=== PATIENT | female | born 1960 | race Caucasian/White ===

== ENCOUNTER 2018-12-17 21:46 | Emergency (ER) | payer BC ==
--- NOTE | 2018-12-17 22:09 | ED ---
Fall HPI - General Chief Complaint: Fall Stated Complaint: Fall, back pain Time Seen by Provider: 12/17/18 22:07 Source: patient Mode of arrival: ambulatory - History of Present Illness Initial Comments: Ayana is a pleasant 58-year-old female who presents to the emergency department today for evaluation of left sided rib and shoulder pain after a fall off of a hay wagon. Patient reports that she was on the back of a hay wagon when she fell backwards onto her back left side. She did not hit her head she did not lose consciousness she immediately felt pain in her left shoulder, collarbone and ribs. He did not take any medication for the pain she immediately came to the emergency department for evaluation. Patient denies any chest pain or shortness of breath. She does report pain in her left ribs with deep breathing. Patient is not on any anticoagulant or antiplatelet medications. - Related Data Home Medications Medication Instructions Recorded Confirmed No Known Home Medications 12/17/18 12/17/18 Allergies Allergy/AdvReac Type Severity Reaction Status Date / Time No Known Allergies Allergy Verified 12/17/18 22:01 Review of Systems ROS Statement: Those systems with pertinent positive or pertinent negative responses have been documented in the HPI. ROS Other: All systems not noted in ROS Statement are negative. Past Medical History Past Medical History: No Reported History Additional Past Medical History / Comment(s): FX RT WRIST-04/19/16 History of Any Multi-Drug Resistant Organisms: None Reported Past Surgical History: Section Past Anesthesia/Blood Transfusion Reactions: No Reported Reaction Past Psychological History: No Psychological Hx Reported Smoking Status: Never smoker Past Alcohol Use History: None Reported Past Drug Use History: None Reported - Past Family History Mother Family Medical History: Diabetes Mellitus Father Family Medical History: Cancer General Exam - General Exam Comments Initial Comments: GENERAL: Patient is well-developed and well-nourished. Appears uncomfortable C-collar applied in triage HENT: Normocephalic, Atraumatic. C-collar in place, no tenderness to palpation Poor dentition, no acute dental injuries EYES: The sclera were anicteric and conjunctiva were pink and moist. Extraocular movements were intact and pupils were equal round and reactive to light. Eyelids were unremarkable. PULMONARY: Unlabored respirations. Decreased breath sounds on left secondary to splinting respirations Chest wall tenderness CARDIOVASCULAR: There is a regular rate and rhythm without any murmurs gallops or rubs. ABDOMEN: Soft and nontender with normal bowel sounds. SKIN: Skin is clear with no lesions or rashes and otherwise unremarkable. NEUROLOGIC: Patient is alert and oriented x3. Cranial nerves II through XII are grossly intact. Motor and sensory are also intact. Normal speech, volume and content. Symmetrical smile. MUSCULOSKELETAL: Obvious deformity of left clavicle PSYCHIATRIC: Normal psychiatric evaluation Limitations: no limitations Course Vital Signs 12/17/18 12/17/18 12/17/18 21:49 22:47 22:50 Temperature 98.0 F Pulse Rate 74 Respiratory 18 Rate Blood Pressure 124/77 O2 Sat by Pulse 100 100 100 Oximetry 12/17/18 12/17/18 12/18/18 23:40 23:50 00:20 Temperature Pulse Rate Respiratory 19 Rate Blood Pressure 117/75 133/79 O2 Sat by Pulse 99 99 100 Oximetry 12/18/18 12/18/18 12/18/18 00:30 00:40 00:50 Temperature 98.6 F Pulse Rate 95 Respiratory 19 20 Rate Blood Pressure 120/74 135/71 116/65 O2 Sat by Pulse 100 100 100 Oximetry Medical Decision Making - Medical Decision Making The patient was seen and evaluated Patient had a fall backwards off of a hay wagon landing onto the ground she did not strike her head she did not have os of consciousness Patient with an obvious clavicular fracture, concern for rib injury Labs and imaging were ordered Morphine was given for pain management Computed tomography scan resulted with no acute intracranial pathology, some concern for narrowing at the central cord at C5-C6 though the patient has no significant pain she has no focal neurologic deficits CT also reveals a small apical pneumothorax on the left, likely pulmonary contusion, ribs 2 through 8 fractured did fractures of ribs 7 and 8 Additional dose of morphine and Lidoderm ordered for the patient, patient was given supplemental oxygen by nasal cannula Has remained hemodynamically stable heart rate remains in the 80s with oxygen saturation of 100% on room air however supplement oxygen will be provided due to the small apical pneumothorax that was noted on computed tomography scan Given the multiple traumatic injuries and the findings of C5-C6 narrowing I feel the patient would benefit from being transferred to a facility with neurosurgical evaluation available. Patient are agreeable to plan for transfer. Patient care was discussed with ER physician at [facility] who accepts the transfer to Dr. Hay - Lab Data Result diagrams: 12/17/18 22:58 12/17/18 22:24 Lab Results 12/17/18 12/17/18 12/17/18 Range/Units 22:15 22:24 22:58 WBC 18.3 H (3.8-10.6) k/uL RBC 4.55 (3.80-5.40) m/uL Hgb 12.7 (11.4-16.0) gm/dL Hct 39.6 (34.0-46.0) % MCV 87.0 (80.0-100.0) fL MCH 28.0 (25.0-35.0) pg MCHC 32.2 (31.0-37.0) g/dL RDW 13.8 (11.5-15.5) % Plt Count 164 (150-450) k/uL Neutrophils % 82 % Lymphocytes % 10 % Monocytes % 6 % Eosinophils % 1 % Basophils % 0 % Neutrophils # 15.0 H (1.3-7.7) k/uL Lymphocytes # 1.8 (1.0-4.8) k/uL Monocytes # 1.1 H (0-1.0) k/uL Eosinophils # 0.2 (0-0.7) k/uL Basophils # 0.1 (0-0.2) k/uL PT 11.1 (9.0-12.0) sec INR 1.0 (<1.2) APTT 21.3 L (22.0-30.0) sec Sodium 141 (137-145) mmol/L Potassium 3.9 (3.5-5.1) mmol/L Chloride 107 (98-107) mmol/L Carbon Dioxide 24 (22-30) mmol/L Anion Gap 10 mmol/L BUN 19 H (7-17) mg/dL Creatinine 0.56 (0.52-1.04) mg/dL Est GFR (CKD-EPI)AfAm >90 (>60 ml/min/1.73 sqM) Est GFR (CKD-EPI)NonAf >90 (>60 ml/min/1.73 sqM) Glucose 119 H (74-99) mg/dL Calcium 9.8 (8.4-10.2) mg/dL Total Bilirubin 1.2 (0.2-1.3) mg/dL AST 23 (14-36) U/L ALT 26 (9-52) U/L Alkaline Phosphatase 71 (38-126) U/L Total Protein 7.3 (6.3-8.2) g/dL Albumin 4.4 (3.5-5.0) g/dL Urine Color Urine Appearance (Clear) Urine pH (5.0-8.0) Ur Specific [place] (1.001-1.035) Urine Protein (Negative) Urine Glucose (UA) (Negative) Urine Ketones (Negative) Urine Blood (Negative) Urine Nitrite (Negative) Urine Bilirubin (Negative) Urine Urobilinogen (<2.0) mg/dL Ur Leukocyte Esterase (Negative) Urine RBC (0-5) /hpf Urine WBC (0-5) /hpf Ur Squamous Epith Cells (0-4) /hpf Urine Bacteria (None) /hpf Hyaline Casts (0-2) /lpf Urine Mucus (None) /hpf Urine Opiates Screen (NotDetected) Ur Oxycodone Screen (NotDetected) Urine Methadone Screen (NotDetected) Ur Propoxyphene Screen (NotDetected) Ur Barbiturates Screen (NotDetected) U Tricyclic Antidepress (NotDetected) Ur Phencyclidine Scrn (NotDetected) Ur Amphetamines Screen (NotDetected) U Methamphetamines Scrn (NotDetected) U Benzodiazepines Scrn (NotDetected) Urine Cocaine Screen (NotDetected) U Marijuana (THC) Screen (NotDetected) Serum Alcohol <10 mg/dL 12/18/18 Range/Units 00:28 WBC (3.8-10.6) k/uL RBC (3.80-5.40) m/uL Hgb (11.4-16.0) gm/dL Hct (34.0-46.0) % MCV (80.0-100.0) fL MCH (25.0-35.0) pg MCHC (31.0-37.0) g/dL RDW (11.5-15.5) % Plt Count (150-450) k/uL Neutrophils % % Lymphocytes % % Monocytes % % Eosinophils % % Basophils % % Neutrophils # (1.3-7.7) k/uL Lymphocytes # (1.0-4.8) k/uL Monocytes # (0-1.0) k/uL Eosinophils # (0-0.7) k/uL Basophils # (0-0.2) k/uL PT (9.0-12.0) sec INR (<1.2) APTT (22.0-30.0) sec Sodium (137-145) mmol/L Potassium (3.5-5.1) mmol/L Chloride (98-107) mmol/L Carbon Dioxide (22-30) mmol/L Anion Gap mmol/L BUN (7-17) mg/dL Creatinine (0.52-1.04) mg/dL Est GFR (CKD-EPI)AfAm (>60 ml/min/1.73 sqM) Est GFR (CKD-EPI)NonAf (>60 ml/min/1.73 sqM) Glucose (74-99) mg/dL Calcium (8.4-10.2) mg/dL Total Bilirubin (0.2-1.3) mg/dL AST (14-36) U/L ALT (9-52) U/L Alkaline Phosphatase (38-126) U/L Total Protein (6.3-8.2) g/dL Albumin (3.5-5.0) g/dL Urine Color Yellow Urine Appearance Cloudy H (Clear) Urine pH 5.0 (5.0-8.0) Ur Specific [place] 1.026 (1.001-1.035) Urine Protein 1+ H (Negative) Urine Glucose (UA) Negative (Negative) Urine Ketones Trace H (Negative) Urine Blood Moderate H (Negative) Urine Nitrite Negative (Negative) Urine Bilirubin Negative (Negative) Urine Urobilinogen <2.0 (<2.0) mg/dL Ur Leukocyte Esterase Negative (Negative) Urine RBC 14 H (0-5) /hpf Urine WBC 6 H (0-5) /hpf Ur Squamous Epith Cells 1 (0-4) /hpf Urine Bacteria Many H (None) /hpf Hyaline Casts 4 H (0-2) /lpf Urine Mucus Moderate H (None) /hpf Urine Opiates Screen Detected H (NotDetected) Ur Oxycodone Screen Not Detected (NotDetected) Urine Methadone Screen Not Detected (NotDetected) Ur Propoxyphene Screen Not Detected (NotDetected) Ur Barbiturates Screen Not Detected (NotDetected) U Tricyclic Antidepress Not Detected (NotDetected) Ur Phencyclidine Scrn Not Detected (NotDetected) Ur Amphetamines Screen Not Detected (NotDetected) U Methamphetamines Scrn Not Detected (NotDetected) U Benzodiazepines Scrn Not Detected (NotDetected) Urine Cocaine Screen Not Detected (NotDetected) U Marijuana (THC) Screen Not Detected (NotDetected) Serum Alcohol mg/dL - EKG Data -: EKG Interpreted by Me EKG shows normal: sinus rhythm EKG Comments: EKG was obtained due to history of trauma, EKG obtained at 2215, rate of 77 rhyt hm is sinus there is normal axis there are normal intervals, MS 132, QRS 110, QTC 436. There is no acute ST elevations or depressions no evidence of acute ischemia or infarction. Sinus arrhythmias noted. Disposition Clinical Impression: Fall, Traumatic pneumothorax, Ribs, multiple fractures Disposition: OTHER INSTITUTION NOT DEFINED Condition: Serious Is patient prescribed a controlled substance at d/c from ED?: No Referrals: None,Stated [Primary Care Provider] - 1-2 days - Out of Hospital Transfer - Req. Specs Out of Hospital Transfer - Requested Specifics: Other Emergency Center ([facility])
[2018-12-17] MEDS ORDERED: SODIUM CHLORIDE 0.9% 500 ML 500 ML IV STA (22:15)
[2018-12-17] MEDS ORDERED: MORPHINE SULFATE 4 MG/ML SYRINGE IVP STA (22:16)
[2018-12-17 22:45] LABS: ALT 26 U/L (9-52); AST 23 U/L (14-36); African American GFR (CKD) >90 (>60 ml/min/1.73 sqM); Albumin 4.4 g/dL (3.5-5.0); Alcohol <10 mg/dL; Alkaline Phosphatase 71 U/L (38-126); Anion Gap 10 mmol/L; Blood Urea Nitrogen 19 mg/dL (7-17); Calcium 9.8 mg/dL (8.4-10.2); Carbon Dioxide 24 mmol/L (22-30); Chloride 107 mmol/L (98-107); Glucose 119 mg/dL (74-99); Potassium 3.9 mmol/L (3.5-5.1); Sodium 141 mmol/L (137-145); Total Bilirubin 1.2 mg/dL (0.2-1.3); Total Protein 7.3 g/dL (6.3-8.2)
--- NOTE | 2018-12-17 23:10 | XR ---
History: ITS.REASON XR Reason: trauma Exam: XR CXR 1 VIEW Comparison: FINDINGS: Multiple left-sided rib fractures with streaky opacity at the left base may represent atelectasis with a developing contusion not excluded. Possible very small left apical pneumothorax. Displaced mid left clavicle fracture. Right lung appears clear. The cardiac silhouette appears enlarged for technique. IMPRESSION: Multiple left-sided rib fractures with streaky opacity at the left base may represent atelectasis with a developing contusion not excluded. Possible very small left apical pneumothorax. Displaced mid left clavicle fracture. Right lung appears clear. The cardiac silhouette appears enlarged for technique.
--- NOTE | 2018-12-17 23:13 | XR ---
History: ITS.REASON XR Reason: Trauma Exam: XR PELVIS single image Comparison: None available FINDINGS: No fracture or dislocation. Partial fusion of the right L5 transverse process with the iliac. IMPRESSION: No fracture or dislocation.
--- NOTE | 2018-12-17 23:32 | CT ---
History: ITS.REASON CT Reason: trauma Exam: CT HEAD Without Contrast Technique more: CTDI is 58.67 mGy and DLP is 1309.5 mGy-cm. Technique more: This CT exam was performed using one or more of the following dose reduction techniques: automated exposure control, adjustment of the mA and/or kV according to patient size, and/or use of iterative reconstruction technique. Comparison: None available FINDINGS: No intracranial hemorrhage, mass effect or calvarial fracture. The ventricles are within limits and midline. The visualized paranasal sinuses, mastoids and orbits appear within limits. IMPRESSION: No intracranial hemorrhage, mass effect or calvarial fracture. Exam: CT C SPINE Without Contrast Technique more: CTDI is 58.67 mGy and DLP is 1309.5 mGy-cm. Technique more: This CT exam was performed using one or more of the following dose reduction techniques: automated exposure control, adjustment of the mA and/or kV according to patient size, and/or use of iterative reconstruction technique. Comparison: None available FINDINGS: No fracture or malalignment. Multilevel spondylosis/discogenic change with bilateral foraminal and central narrowing with posterior disc osteophyte complexes appears greatest at C5-6 with possible associated degree of central cord impingement. Very small left apical pneumothorax. IMPRESSION: No fracture or malalignment. Multilevel spondylosis/discogenic change with bilateral foraminal and central narrowing with posterior disc osteophyte complexes appears greatest at C5-6 with possible associated degree of central cord impingement. Very small left apical pneumothorax.
--- NOTE | 2018-12-17 23:45 | CT ---
History: ITS.REASON CT Reason: trauma Exam: CT T SPINE Without Contrast Technique more: CTDI is 58.67 mGy and DLP is 381.4 mGy-cm. Technique more: This CT exam was performed using one or more of the following dose reduction techniques: automated exposure control, adjustment of the mA and/or kV according to patient size, and/or use of iterative reconstruction technique. Comparison: None available FINDINGS: Left 2nd through 10th rib fractures with the third through seventh being segmental and comminuted displaced posterior eighth and ninth rib fractures. Comminuted, displaced left clavicle fracture. Very small left pneumothorax. Posterior patchy areas of parenchymal ground-glass opacity may represent atelectasis or developing contusion. No thoracic spine fracture or malalignment. Small left pleural effusion. Question mild buckling of the upper sternal body for example sagittal 33. IMPRESSION: Left 2nd through 10th rib fractures with the third through seventh being segmental and comminuted displaced posterior eighth and ninth rib fractures. Comminuted, displaced left clavicle fracture. Very small left pneumothorax. Posterior patchy areas of parenchymal ground-glass opacity may represent atelectasis or developing contusion. No thoracic spine fracture or malalignment. Small left pleural effusion. Question mild buckling of the upper sternal body for example sagittal 33. Exam: CT L SPINE Without Contrast Technique more: CTDI is 58.67 mGy and DLP is 381.4 mGy-cm. Technique more: This CT exam was performed using one or more of the following dose reduction techniques: automated exposure control, adjustment of the mA and/or kV according to patient size, and/or use of iterative reconstruction technique. Comparison: None available FINDINGS: No acute fracture or malalignment. Spondylosis with hypertrophic changes at the spinous processes. Partial osseous fusion of the right sacroiliac joint and degenerative changes on the left. Partial osseous fusion of the right L5 transverse process and the iliac. IMPRESSION: No acute fracture or malalignment.
[2018-12-17 23:52] LABS: Prothrombin Time 11.1 sec (9.0-12.0)
[2018-12-17 23:53] LABS: Basophils # (A) 0.1 k/uL (0-0.2); Basophils % (A) 0 %; Eosinophils # (A) 0.2 k/uL (0-0.7); Eosinophils % (A) 1 %; HCT 39.6 % (34.0-46.0); HGB 12.7 gm/dL (11.4-16.0); Lymphocytes # (A) 1.8 k/uL (1.0-4.8); Lymphocytes % (A) 10 %; MCHC 32.2 g/dL (31.0-37.0); Mean Platelet Volume 9.7; Monocytes # (A) 1.1 k/uL (0-1.0); Monocytes % (A) 6 %; Neutrophils % (A) 82 %; Platelet Count 164 k/uL (150-450); RBC 4.55 m/uL (3.80-5.40); RDW 13.8 % (11.5-15.5); WBC 18.3 k/uL (3.8-10.6)
[2018-12-18] MEDS ORDERED: LIDOCAINE 5% PATCH TOPICAL STA
[2018-12-18] MEDS ORDERED: MORPHINE SULFATE 4 MG/ML SYRINGE IVP STA
[2018-12-18 00:13] LABS: Partial Thromboplastin Time 21.3 sec (22.0-30.0)
[2018-12-18 01:01] VITALS: BP 116/65; PULSE 95; RESP 20; TEMP 98.6
[2018-12-18 02:00] LABS: Appearance,Urine Cloudy (Clear); Bacteria,Urine Many /hpf; Bilirubin,Urine Negative (Negative); Blood,Urine Moderate (Negative); Color,Urine Yellow; Glucose,Urine (UA) Negative (Negative); Hyaline Casts,Urine 4 /lpf (0-2); Ketones,Urine Trace (Negative); Leukocyte Esterase,Urine Negative (Negative); Mucus,Urine Moderate /hpf; Nitrite,Urine Negative (Negative); Protein,Urine 1+ (Negative); RBC,Urine 14 /hpf (0-5); Specific Gravity,Urine 1.026 (1.001-1.035); Squamous Epithelial Cell,Urine 1 /hpf (0-4); Urobilinogen,Urine <2.0 mg/dL (<2.0); WBC,Urine 6 /hpf (0-5)
[2018-12-18 02:06] LABS: Amphetamine Screen,Urine Not Detected (NotDetected); Barbiturate Screen,Urine Not Detected (NotDetected); Benzodiazepines Screen,Urine Not Detected (NotDetected); Cocaine Screen,Urine Not Detected (NotDetected); Methadone Screen, Urine Not Detected (NotDetected); Opiate Screen,Urine Detected (NotDetected); Oxycodone Screen, Urine Not Detected (NotDetected); Phencyclidine Screen,Urine Not Detected (NotDetected); Tricyclic Antidepressant,Urine Not Detected (NotDetected); Urn Cannabinoid Scrn Not Detected (NotDetected)
== END 2018-12-18 01:00 | disposition short-term general hospital (02) ==
LOC: EC 21:46
DX: S27.0XXA Traumatic pneumothorax, initial encounter (principal); S22.42XA Multiple fractures of ribs, left side, initial encounter for closed fracture; M48.02 Spinal stenosis, cervical region; M95.8 Other specified acquired deformities of musculoskeletal system; M25.512 Pain in left shoulder; W17.89XA Other fall from one level to another, initial encounter
CPT/HCPCS: 99285; 96374; 96376; 36415; 80053; 85025; 85610; 85730; 81001; 80306; 80320; 72170; 71045; 72128; 72125; 72131; 70450; J2270 ×2

== ENCOUNTER 2019-01-14 06:57 | Day surgery (SDC) | payer BC ==
[2019-01-11 15:55] VITALS: BMI 23.9
[~2019-01-14 06:57] MED LIST: DEXAMETHASONE SOD PHOSPHATE 10 MG/ML 1 ML VIAL IV ONE; HYDROmorphone 0.5 MG/0.5 ML SYRINGE IVP PRN; LACTATED RINGERS 1,000 ML IV SCH; LIDOCAINE 1% 20 ML VIAL (10MG/ML) FOR IV START INTRADERMA PRN; MIDAZOLAM 2 MG/2 ML VIAL IV PRN; ONDANSETRON 4 MG/2 ML VIAL IVP ONE; SCOPOLAMINE 1.5MG/72HR PATCH TRANSDERM ONE
[2019-01-14] MEDS ORDERED: SUCCINYLCHOLINE CHLORIDE 100 MG/5 ML SYR IV ONE (09:50)
[2019-01-14] MEDS ORDERED: ROPIVACAINE 5 MG/ML 30 ML VIAL ONE (09:50)
[2019-01-14] MEDS ORDERED: fentaNYL (PF) 50 MCG/ML 2 ML AMP ONE (09:50)
[2019-01-14] MEDS ORDERED: PROPOFOL 10 MG/ML 20 ML VIAL IV ONE (09:50)
[2019-01-14] MEDS ORDERED: LIDOCAINE 1% INJ 10MG/ML (20 ML MDV) ONE (09:50)
[2019-01-14] MEDS ORDERED: DEXAMETHASONE SOD PHOSPHATE 4 MG/ML 1 ML VIAL ONE (09:50)
[2019-01-14] MEDS ORDERED: LIDOCAINE 2%-EPI 1:100,000 20 ML VIAL SQ ONE (10:28)
[2019-01-14] MEDS ORDERED: LACTATED RINGERS 1,000 ML IV ONE (10:40)
--- NOTE | 2019-01-14 11:30 | P.OP ---
Date of Procedure: 01/14/19 Preoperative Diagnosis: Completely displaced and shortened left midshaft clavicle fracture Postoperative Diagnosis: Same Procedure(s) Performed: Open reduction and internal fixation left clavicle Anesthesia: DILLON, ellen Surgeon: Francisco Pope Organ Assembler #1: Cari Jiang Estimated Blood Loss (ml): 10 IV fluids (ml): 1,100 Pathology: none sent Condition: stable Disposition: PACU Indications for Procedure: The patient is a very pleasant. She healthy 58-year-old female who fell on 12/17/2018 resulting in isolated injury to her left shoulder. X-rays were taken and showed a clavicle fracture. She was referred to my office to discuss treatment. Her repeat x-rays in the office showed complete displacement and shortening. I had a long discussion with the patient and her on treatment options including both nonsurgical and surgical treatment. I reviewed the relevant orthopedic literature with them discussing the most recent evidence in regards to clavicle fractures. We discussed the possibility that her fracture may heal with nonsurgical treatment. We also discussed the risks and benefits of surgery. The patient and her were unsure on how they wanted to proceed I recommended that they take several days to think about her options after our discussion. The patient and her returned to my office earlier this week after having thought about it for several days. We repeated the x- rays which showed continued displacement. We again discussed treatment options. After both of our discussions the patient decided she wanted to go forward with operative fixation. 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 I long discussion with the patient and her the potential risks of surgery i ncluding but not limited to risk of anesthesia, superficial infection, deep infection, delayed wound healing, damage to local blood vessels or nerves including the great vessels underneath the clavicle, numbness over the anterior aspect of the chest, nonunion, malunion, hardware failure, damage to the lung cavity, chronic pain, chronic swelling, and inability to use the left arm a preinjury level of function, dissatisfaction with surgery, [place] hardware, need for further surgery, and possibly loss of life or limb. The patient and her understand these potential complications and provided verbal and written consent to go forward with surgery. Description of Procedure: The patient was identified and prepped with holding and the correct left arm was marked with my initials. I reviewed the consent form with the patient and her . All of their questions were answered. The patient was then brought back to the operating room by anesthesia after receiving a block in preoperative holding. She was positioned on the OR table where a general anesthetic and preoperative antibiotics were given. She was secured to the table and placed in a beachchair position. Her head was adequately secured. All bony prominences were well-padded. The left arm was then prepped and draped in the standard sterile fashion. Prior to starting surgery timeout was performed identifying the correct patient, operative extremity, and procedure. A longitudinal incision was marked out directly over the clavicle. Skin incision was made with a scalpel and dissection was carried down carefully to the subcutaneous tissue with electrocautery. The myofascial layer over the clavicle was incised longitudinally in line with the skin incision. The medial fracture fragment was immediately identified and carefully exposed. There was a small amount of healing but the fracture was found to be still significantly displaced. The lateral shaft fragment was then identified and carefully exposed. There was one large intercalary fragment which was carefully debrided but not completely stripped of its soft tissue attachments. The medial fragment was then pulled out to length and it was keyed in to the lateral spike. It was held in place with a lobster claw. The small intercalary fragment was held in place with a [id number] reduction clamp. I then placed a superior clavicle plate with a cluster of 27 locking screws distally directly superior over the clavicle. I was able to slide it underneath the reduction clamps and the reduction held. Nonlocking 3.5 mm screws were placed medially and laterally bringing the plate down to bone. I then proceeded to place 2 locking 3.5 mm screws medial to the fracture and 5 locking 2.7 mm screws distal to the f racture. A nonlocking 2.4 mm screw was then placed through the intercalary fragment generating excellent compression. Final fluoroscopic images were taken. The wound was thoroughly irrigated with sterile saline. The myofascial layer was closed with a running 0 Vicryl. The deep subcu was reapproximated using 2-0 Vicryl. The skin was closed with a running 3-0 Monocryl subcuticular stitch. Local anesthetic was injected around the incision. Brown quarter inch stretchy Steri-Strips were placed. A sterile dressing consisting of Adaptic, 4 x 4, and Tegaderm was applied including a sterile dressing. The drapes were taken down and the arm was placed into a sling. The patient was awoken from her anesthetic, transferred to a gurney, and brought to recovery having tolerated the procedure well. Sofie Jiang PA-C was required as a skilled assistant inventory manager for patient positioning, surgical exposure, retraction, risk of hardware, closure of wound, and application of dressing. Plan: The patient can discharge home as an outpatient. She was given prescriptions for oral pain medication and a stool softener. She was given a printout and postoperative clavicle instructions. She'll follow-up in the office in 2 weeks for a wound check and x-rays a left clavicle
--- NOTE | 2019-01-14 11:40 | P.ANPRN ---
Procedure Note - Anesthesia - Nerve Block Performed Left Interscalene Single Date of Procedure: 01/14/19 Procedure Start Time: 08:07 Procedure Stop Time: 08:11 Location of Patient Procedure: PreOp Indication: Acute Post-Operative Pain, Requested by physician Sedation Type: Sedate with meaningful contact maintained Preparation: Sterile Prep Position: Supine Needle Types: [place]ajunk Needle Gauge: 21 Technique: Ultrasound Injectate: 0.5% Ropivacaine (see comment for volume) (ropi .5% 25cc plus dexamethasone 4mg) Blood Aspirated: No Pain Paresthesia on Injection Noted: No Resistance on Injection: Normal Events: Uneventful and Well Tolerated
--- NOTE | 2019-01-14 11:48 | FL ---
EXAMINATION TYPE: FL guidance operating room, XR clavicle LT DATE OF EXAM: 01/14/2019 CLINICAL HISTORY: Left clavicle fracture. TECHNIQUE: Fluoroscopy. Intraoperative views left clavicle COMPARISON: CT cervical spine December 17, 2018 FINDINGS: Fluoroscopic guidance was provided during over reduction internal fixation procedure perfo rmed by Dr. Pope. A total of 1 seconds of fluoroscopic time was utilized during the procedure an d single spot fluoroscopic image is acquired. Single image acquired shows satisfactory alignment after reduction and fixation with cranial fixating plate through prior displaced fracture mid aspect left clavicle. IMPRESSION: As Above.
[2019-01-14 11:53] VITALS: TEMP 97.2
[2019-01-14 12:58] VITALS: RESP 18
[2019-01-14 14:22] VITALS: BP 123/82; PULSE 98
== END 2019-01-14 15:02 | disposition home or self-care (01) ==
LOC: OR 06:57
PROVIDERS: ATTEND Orthopaedic Surgery
DX: S42.022A Displaced fracture of shaft of left clavicle, initial encounter for closed fracture (principal); W19.XXXA Unspecified fall, initial encounter
CPT/HCPCS: 23515; 64415; 73000; C1713; J2250; J1100 ×2; J0690; J2405; J2001; J3010; J2795; J0330; J2704

== ENCOUNTER 2020-06-26 13:24 | Observation (INO) | payer BC ==
[2020-06-26] MEDS ORDERED: NITROGLYCERIN OINT 1 INCH/GM PACKET TOPICAL STA (13:55)
[2020-06-26] MEDS ORDERED: ASPIRIN 81 MG PO STA (13:55)
--- NOTE | 2020-06-26 14:02 | ED ---
General Adult HPI - General Chief complaint: Chest Pain Stated complaint: Chest pain Time Seen by Provider: 06/26/20 13:47 Source: patient, RN notes reviewed Mode of arrival: ambulatory Limitations: no limitations - History of Present Illness Initial comments: Patient is a pleasant 59-year-old female presenting to the emergency Department with complaints of chest discomfort. Onset of symptoms was 2 days ago. Symptoms have been waxing and waning. Symptoms are very mild at this time. Discomfort feels like pressure without radiation.Nausea, sweating, or dyspnea. No history of similar symptoms previously. No leg pain or leg swelling. - Related Data Home Medications Medication Instructions Recorded Confirmed Cholecalciferol [Vitamin D3 (25 1,000 unit PO DAILY 06/26/20 06/26/20 Mcg = 1000 Iu)] Ciclopirox 8% Solution 1 applic TOPICAL DAILY 06/26/20 06/26/20 Clotrimazole Cream [Lotrimin Cream] 1 applic TOPICAL BID 06/26/20 06/26/20 Gabapentin [Neurontin] 100 mg PO TID 06/26/20 06/26/20 Garlic 1 tab PO DAILY 06/26/20 06/26/20 Glucosam/Jj-Msm1/C/Charan/Bosw 1 tab PO DAILY 06/26/20 06/26/20 [Glucosamine-Chondroitin Tablet] Latanoprost/Pf [Latanoprost 0.005% 1 drop BOTH EYES HS 06/26/20 06/26/20 Eye Drop] Multivitamins, Thera [Multivitamin 1 tab PO DAILY 06/26/20 06/26/20 (formulary)] rOPINIRole HCL [Requip] 1 mg PO HS 06/26/20 06/26/20 Allergies Allergy/AdvReac Type Severity Reaction Status Date / Time No Known Allergies Allergy Verified 06/26/20 15:06 Review of Systems ROS Statement: Those systems with pertinent positive or pertinent negative responses have been documented in the HPI. ROS Other: All systems not noted in ROS Statement are negative. Constitutional: Denies: fever Eyes: Denies: eye pain ENT: Denies: ear pain Respiratory: Denies: cough, dyspnea Cardiovascular: Reports: chest pain Endocrine: Denies: fatigue Gastrointestinal: Denies: abdominal pain Genitourinary: Denies: dysuria Musculoskeletal: Denies: back pain Skin: Denies: rash Neurological: Denies: weakness Past Medical History Past Medical History: No Reported History Additional Past Medical History / Comment(s): fx left clavicle,hx FX RT WRIST- 04/19/16 History of Any Multi-Drug Resistant Organisms: None Reported Past Surgical History: Section, Orthopedic Surgery Past Anesthesia/Blood Transfusion Reactions: No Reported Reaction Additional Past Anesthesia/Blood Transfusion Reaction / Comment(s): no hx blood transfusion Past Psychological History: No Psychological Hx Reported Smoking Status: Never smoker Past Alcohol Use History: None Reported Past Drug Use History: None Reported - Past Family History Mother History Unknown: Yes Family Medical History: Diabetes Mellitus Father Family Medical History: Cancer General Exam Limitations: no limitations General appearance: alert, in no apparent distress Head exam: Present: normocephalic Eye exam: Present: normal appearance Neck exam: Present: normal inspection Respiratory exam: Present: normal lung sounds bilaterally. Absent: chest wall tenderness Cardiovascular Exam: Present: regular rate, normal rhythm Expanded Peripheral pulses: 2+: Radial (R), Radial (L), Posterior Tibialis (R), Posterior Tibialis (L) GI/Abdominal exam: Present: soft. Absent: tenderness Extremities exam: Present: normal inspection. 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 TX 140. QRS 88. QT 372. QTC 434. Normal axis. Normal QRS. Prominent T waves. Medical Decision Making - Medical Decision Making Patient reevaluated and resting complain bed. Patient and family updated on results and plan. Case discussed in detail with Dr. Lancaster, covering for Dr. Gross, who admits for Dr. Plasencia - Lab Data Result diagrams: 06/26/20 14:09 06/26/20 14:09 Lab Results 06/26/20 06/26/20 06/26/20 Range/Units 14:09 14:09 14:09 WBC 7.3 (3.8-10.6) k/uL RBC 4.63 (3.80-5.40) m/uL Hgb 13.5 (11.4-16.0) gm/dL Hct 41.8 (34.0-46.0) % MCV 90.2 (80.0-100.0) fL MCH 29.1 (25.0-35.0) pg MCHC 32.3 (31.0-37.0) g/dL RDW 13.6 (11.5-15.5) % Plt Count 173 (150-450) k/uL MPV 8.7 Neutrophils % 60 % Lymphocytes % 25 % Monocytes % 10 % Eosinophils % 2 % Basophils % 1 % Neutrophils # 4.3 (1.3-7.7) k/uL Lymphocytes # 1.8 (1.0-4.8) k/uL Monocytes # 0.7 (0-1.0) k/uL Eosinophils # 0.2 (0-0.7) k/uL Basophils # 0.0 (0-0.2) k/uL PT 10.3 (9.0-12.0) sec INR 1.0 (<1.2) APTT 21.5 L (22.0-30.0) sec Sodium 140 (137-145) mmol/L Potassium 4.0 (3.5-5.1) mmol/L Chloride 107 (98-107) mmol/L Carbon Dioxide 29 (22-30) mmol/L Anion Gap 4 mmol/L BUN 20 H (7-17) mg/dL Creatinine 0.58 (0.52-1.04) mg/dL Est GFR (CKD-EPI)AfAm >90 (>60 ml/min/1.73 sqM) Est GFR (CKD-EPI)NonAf >90 (>60 ml/min/1.73 sqM) Glucose 93 (74-99) mg/dL Calcium 9.6 (8.4-10.2) mg/dL Magnesium 2.0 (1.6-2.3) mg/dL Total Bilirubin 1.1 (0.2-1.3) mg/dL AST 29 (14-36) U/L ALT 29 (4-34) U/L Alkaline Phosphatase 69 (38-126) U/L Troponin I (0.000-0.034) ng/mL Total Protein 6.8 (6.3-8.2) g/dL Albumin 4.0 (3.5-5.0) g/dL 06/26/20 Range/Units 14:09 WBC (3.8-10.6) k/uL RBC (3.80-5.40) m/uL Hgb (11.4-16.0) gm/dL Hct (34.0-46.0) % MCV (80.0-100.0) fL MCH (25.0-35.0) pg MCHC (31.0-37.0) g/dL RDW (11.5-15.5) % Plt Count (150-450) k/uL MPV Neutrophils % % Lymphocytes % % Monocytes % % Eosinophils % % Basophils % % Neutrophils # (1.3-7.7) k/uL Lymphocytes # (1.0-4.8) k/uL Monocytes # (0-1.0) k/uL Eosinophils # (0-0.7) k/uL Basophils # (0-0.2) k/uL PT (9.0-12.0) sec INR (<1.2) APTT (22.0-30.0) sec Sodium (137-145) mmol/L Potassium (3.5-5.1) mmol/L Chloride (98-107) mmol/L Carbon Dioxide (22-30) mmol/L Anion Gap mmol/L BUN (7-17) mg/dL Creatinine (0.52-1.04) mg/dL Est GFR (CKD-EPI)AfAm (>60 ml/min/1.73 sqM) Est GFR (CKD-EPI)NonAf (>60 ml/min/1.73 sqM) Glucose (74-99) mg/dL Calcium (8.4-10.2) mg/dL Magnesium (1.6-2.3) mg/dL Total Bilirubin (0.2-1.3) mg/dL AST (14-36) U/L ALT (4-34) U/L Alkaline Phosphatase (38-126) U/L Troponin I <0.012 (0.000-0.034) ng/mL Total Protein (6.3-8.2) g/dL Albumin (3.5-5.0) g/dL - Radiology Data Radiology results: image reviewed (Chest x-ray shows mild cardiomegaly. Correlate for pulmonary vascular congestion.) Disposition Clinical Impression: Chest pain Disposition: ADMITTED IP TO THIS HOSP Is patient prescribed a controlled substance at d/c from ED?: No Referrals: Benjamin Telles MD [Primary Care Provider] - 1-2 days Decision Time: 15:18
[2020-06-26 14:22] LABS: Basophils % (A) 1 %; Eosinophils # (A) 0.2 k/uL (0-0.7); Eosinophils % (A) 2 %; HCT 41.8 % (34.0-46.0); HGB 13.5 gm/dL (11.4-16.0); Lymphocytes # (A) 1.8 k/uL (1.0-4.8); Lymphocytes % (A) 25 %; MCH 29.1 pg (25.0-35.0); MCHC 32.3 g/dL (31.0-37.0); MCV 90.2 fL (80.0-100.0); Mean Platelet Volume 8.7; Monocytes # (A) 0.7 k/uL (0-1.0); Monocytes % (A) 10 %; Neutrophils # (A) 4.3 k/uL (1.3-7.7); Neutrophils % (A) 60 %; Platelet Count 173 k/uL (150-450); RBC 4.63 m/uL (3.80-5.40); RDW 13.6 % (11.5-15.5); WBC 7.3 k/uL (3.8-10.6)
--- NOTE | 2020-06-26 14:23 | XR ---
EXAMINATION TYPE: XR chest 2V DATE OF EXAM: 06/26/2020 COMPARISON: 12/17/2018 HISTORY: 59-year-old female chest pain for 2 days TECHNIQUE: PA and lateral views FINDINGS: There is screw fixation of the left clavicle. Heart mildly enlarged. Interstitial/vascular prominence . There is strandy left basilar atelectasis. The right main pulmonary artery appears large on the lat eral view. No consolidation or pleural effusion. Multiple old healed left-sided rib fracture deformit ies. IMPRESSION: Mild cardiomegaly. Correlate for mild CHF and pulmonary vascular congestion. Possible underlying pulm onary arterial hypertension. No focal infiltrate.
[2020-06-26 14:28] LABS: ALT 29 U/L (4-34); AST 29 U/L (14-36); African American GFR (CKD) >90 (>60 ml/min/1.73 sqM); Alkaline Phosphatase 69 U/L (38-126); Anion Gap 4 mmol/L; Blood Urea Nitrogen 20 mg/dL (7-17); Calcium 9.6 mg/dL (8.4-10.2); Carbon Dioxide 29 mmol/L (22-30); Chloride 107 mmol/L (98-107); Glucose 93 mg/dL (74-99); Non-African American GFR(CKD) >90 (>60 ml/min/1.73 sqM); Sodium 140 mmol/L (137-145); Total Bilirubin 1.1 mg/dL (0.2-1.3); Total Protein 6.8 g/dL (6.3-8.2)
[2020-06-26 14:41] LABS: Prothrombin Time 10.3 sec (9.0-12.0)
[2020-06-26 14:47] LABS: Partial Thromboplastin Time 21.5 sec (22.0-30.0)
[2020-06-26] MEDS ORDERED: NITROGLYCERIN SL TABS 0.4 MG TAB SUBLINGUAL PRN (15:18)
[2020-06-26 16:02] VITALS: RESP 16
--- NOTE | 2020-06-26 16:11 | P.HPIM ---
History of Present Illness H&P Date: 06/26/20 This is a 59-year-old female with no significant past medical history who presented to the emergency room with chest pain. Patient said that she had an episode of chest pain on Friday that lasted less than 20 seconds. She described the pain as sharp and intermittent of her chest. There was no r adiation. Her pain was associated with some diaphoresis but otherwise no palpitation, nausea, or dizziness. Patient said that she did not have any recurrence of her pain since then. Today, she felt some discomfort in the middle of her chest and decided to come to the emergency room for further ev aluation. Patient denies any cardiac history. She is usually fairly active and is able to climb one flight of stairs with no shortness of breath or chest pain. She denies any orthopnea or shortness of breath with exertion. She denies any premature coronary artery disease in the family. No prior cardiac history. No known underlying hypertension or hyperlipidemia. Review of Systems Review of system: 14 points review of systems were obtained and were negative except to what were mentioned in the HPI. Past Medical History Past Medical History: No Reported History Additional Past Medical History / Comment(s): fx left clavicle,hx FX RT WRIST- 04/19/16 History of Any Multi-Drug Resistant Organisms: None Reported Past Surgical History: Section, Orthopedic Surgery Past Anesthesia/Blood Transfusion Reactions: No Reported Reaction Additional Past Anesthesia/Blood Transfusion Reaction / Comment(s): no hx blood transfusion Past Psychological History: No Psychological Hx Reported Smoking Status: Never smoker Past Alcohol Use History: None Reported Past Drug Use History: None Reported - Past Family History Mother History Unknown: Yes Family Medical History: Diabetes Mellitus Father Family Medical History: Cancer Medications and Allergies Home Medications Medication Instructions Recorded Confirmed Type Cholecalciferol [Vitamin D3 (25 1,000 unit PO DAILY 06/26/20 06/26/20 History Mcg = 1000 Iu)] Ciclopirox 8% Solution 1 applic TOPICAL DAILY 06/26/20 06/26/20 History Clotrimazole Cream [Lotrimin Cream] 1 applic TOPICAL BID 06/26/20 06/26/20 History Gabapentin [Neurontin] 100 mg PO TID 06/26/20 06/26/20 History Garlic 1 tab PO DAILY 06/26/20 06/26/20 History Glucosam/Jj-Msm1/C/Charan/Bosw 1 tab PO DAILY 06/26/20 06/26/20 History [Glucosamine-Chondroitin Tablet] Latanoprost/Pf [Latanoprost 0.005% 1 drop BOTH EYES HS 06/26/20 06/26/20 History Eye Drop] Multivitamins, Thera [Multivitamin 1 tab PO DAILY 06/26/20 06/26/20 History (formulary)] rOPINIRole HCL [Requip] 1 mg PO HS 06/26/20 06/26/20 History Allergies Allergy/AdvReac Type Severity Reaction Status Date / Time No Known Allergies Allergy Verified 06/26/20 15:06 Physical Exam Vitals: Vital Signs Temp Pulse Pulse Pulse Resp BP BP 06/26/20 15:55 98 F 85 16 134/79 06/26/20 15:00 108/78 06/26/20 14:15 82 18 132/82 06/26/20 14:09 80 16 06/26/20 14:00 82 20 130/70 06/26/20 13:28 98.0 F 91 16 141/77 Pulse Ox 06/26/20 15:55 99 06/26/20 15:00 97 06/26/20 14:15 100 06/26/20 14:09 06/26/20 14:00 100 06/26/20 13:28 100 Intake and Output 06/26/20 06/26/20 06/26/20 06:59 14:59 22:59 Other: Weight 78.426 kg 78.426 kg General: The patient is awake and alert, in no distress Eye: there is normal conjunctiva bilaterally. Neck: The neck is supple, there is no JVD. Cardiovascular: Normal S1-S2, no S3-S4, no murmurs. Respiratory: Lungs clear to auscultation bilaterally Gastrointestinal: Abdomen is soft, nontender Musculoskeletal: There is no pedal edema. Neurological:. Speech is normal. Skin: Skin is warm and dry Results CBC & Chem 7: 06/26/20 14:09 06/26/20 14:09 Labs: Abnormal Lab Results - Last 24 Hours (Table) 06/26/20 06/26/20 Range/Units 14:09 14:09 APTT 21.5 L (22.0-30.0) sec BUN 20 H (7-17) mg/dL Thrombosis Risk Factor Assmnt - Choose All That Apply Any of the Below Risk Factors Present?: Yes Each Factor Represents 1 point: Obesity (BMI >25) Thrombosis Risk Factor Assessment Total Risk Factor Score: 1 Thrombosis Risk Factor Assessment Level: Low Risk Assessment and Plan Assessment: 1. Chest pain, mostly atypical in nature. Twelve-lead EKG showed no acute ischemic changes. Initial troponin is negative. We will continue telemetry monitoring. Trend troponin. Chest x-ray in the ER showed evidence of fluid overload awaiting BNP. I would order echocardiogram for further evaluation. Awaiting cardiology evaluation. Check fasting lipid profile in the morning. 2. Chronic medical problems: Restless leg syndrome, insomnia, and chronic arthritis 3. DVT prophylaxis with subcu heparin
[2020-06-26] MEDS: NITROGLYCERIN OINT 1 INCH/GM PACKET TOPICAL SCH (18:35)
[2020-06-26] MEDS ORDERED: LATANOPROST 0.005% OPHTH DROPS 2.5 ML BTL BOTH EYES SCH (21:00)
[2020-06-26] MEDS ORDERED: MELATONIN 5 MG TABLET PO SCH (21:00)
[2020-06-26] MEDS: GABAPENTIN 100 MG CAP PO SCH (21:58)
[2020-06-26] MEDS: HEPARIN SODIUM,PORCINE 5,000 UNIT/ML 1 ML VIAL SQ SCH (21:58)
[2020-06-27] MEDS: NITROGLYCERIN OINT 1 INCH/GM PACKET TOPICAL SCH ×2 (00:08→07:12)
[2020-06-27 04:13] LABS: Cholesterol 209 mg/dL (<200); HDL Cholesterol 82 mg/dL (40-60); LDL Cholesterol,Calculated 116 mg/dL (0-99); Triglycerides 54 mg/dL (<150)
[2020-06-27 05:30] VITALS: PULSE 82
[2020-06-27 08:21] VITALS: BP 123/72; TEMP 97.9
[2020-06-27] MEDS ORDERED: ASPIRIN 325 MG TAB PO SCH (09:00)
[2020-06-27] MEDS ORDERED: CHOLECALCIFEROL 1,000 UNIT TAB PO SCH (09:00)
[2020-06-27] MEDS ORDERED: ASPIRIN 81 MG PO SCH (09:00)
[2020-06-27] MEDS ORDERED: MULTIVITAMINS, THERA 1 EACH TAB PO SCH (09:00)
--- NOTE | 2020-06-27 09:14 | CONS ---
CONSULTATION Mrs. Luis is a 59-year-old female with no prior cardiac history who presented with an episode of chest discomfort. The discomfort occurred on Friday at rest, lasting for a few minutes, not associated with any other symptoms. She came in yesterday to the emergency room and subsequently admitted. The patient has been more active physically prior to the pandemic, but has no history of dyspnea on exertion. No chest discomfort. No dizziness. No palpitation. No PND or orthopnea. No peripheral edema. She has no prior cardiac workup and no history of cardiac disease. Her coronary risk factors are negative for hypertension, hyperlipidemia, or diabetes. She is a nonsmoker. MEDICATION: Her medications include vitamin D, Requip, Neurontin. REVIEW OF SYSTEMS: RESPIRATORY SYSTEM: She has no recent wheezing. No cough. No history of documented obstructive lung disease. GI SYSTEM: No recent GI bleeding. No peptic ulcer disease. SYSTEM: No dysuria or hematuria. NERVOUS SYSTEM: No stroke or seizure. PHYSICAL EXAMINATION: She is a 59-year-old female, alert, oriented, in no apparent distress. Blood pressure 120/60 with the heart rate in the 80s. HEAD: Normocephalic. EYES: Sclerae anicteric. NECK: Good carotid upstroke. No bruit. No jugular venous distention. LUNGS: Clear to auscultation. HEART: Regular rate and rhythm. S1, S2. No S3. No S4. No murmur or rub. ABDOMEN: Soft, nontender. Positive bowel sounds. No organomegaly. EXTREMITIES: No edema. Intact distal pulses. LAB DATA: Lab data revealed a hemoglobin of 13.5. BUN and creatinine 20 and 0.58. Troponin less than 0.012. Cholesterol 209, LDL of 116. EKG revealed a sinus mechanism, normal axis and intervals, normal electrocardiogram. Chest x-ray shows mild cardiomegaly with questionable CHF. IMPRESSION: Chest discomfort has atypical feature for ischemic heart disease. No evidence for acute coronary syndrome. RECOMMENDATION: I have recommended to proceed with obtaining transthoracic echocardiogram and a stress echocardiogram and depending on those findings, further recommendation will be made. Thank you for this consult. We will follow with you. MMODL / IJN: [id number] /
[2020-06-27] MEDS ORDERED: CHOLECALCIFEROL 25 MCG (1000 IU) TABLET PO SCH (10:15)
--- NOTE | 2020-06-27 10:20 | ECHOF ---
Referral Reason:CHF MEASUREMENTS -------- HEIGHT: 160.0 cm WEIGHT: 78.0 kg BP: 120/69 RVIDd: 3.1 cm (< 3.3) IVSd: 1.1 cm (0.6 - 1.1) LVIDd: 3.8 cm (3.9 - 5.3) LVPWd: 1.0 cm (0.6 - 1.1) IVSs: 1.5 cm LVIDs: 2.5 cm LVPWs: 1.3 cm LA Diam: 2.9 cm (2.7 - 3.8) LAESV Index (A-L): 28.17 ml/m Ao Diam: 3.3 cm (2.0 - 3.7) AV Cusp: 2.3 cm (1.5 - 2.6) MV EXCURSION: 20.347 mm (> 18.000) MV EF SLOPE: 134 mm/s (70 - 150) EPSS: 0.4 cm MV E Deven: 1.04 m/s MV DecT: 174 ms MV A Deven: 0.81 m/s MV E/A Ratio: 1.29 RAP: 5.00 mmHg RVSP: 27.65 mmHg FINDINGS -------- Sinus rhythm. This was a technically adequate study. The left ventricular size is normal. Left ventricular wall thickness is normal. Overall left vent ricular systolic function is normal with, an EF between 55 - 60 %. The diastolic filling pattern is normal for the age of the patient 11.25. The right ventricle is normal in size. Normal LA size by volume 22+/-6 ml/m2. The right atrial size is normal. Interatrial and interventricular septum intact. The aortic valve is trileaflet and appears structurally normal. Trace amount of aortic regurgitatio n. The mitral valve is normal. There is trace mitral regurgitation. The tricuspid valve appears structurally normal. Mild tricuspid regurgitation present. Right vent ricular systolic pressure is normal at < 35 mmHg. Trace/mild (physiologic) pulmonic regurgitation. The aortic root size is normal. Normal inferior vena cava with normal inspiratory collapse consistent with estimated right atrial pre ssure of 5 mmHg. There is no pericardial effusion. CONCLUSIONS -------- 1. Overall left ventricular systolic function is normal with, an EF between 55 - 60 %. 2. Normal LA size by volume 22+/-6 ml/m2. 3. Trace amount of aortic regurgitation. 4. There is trace mitral regurgitation. 5. Mild tricuspid regurgitation present. 6. Trace/mild (physiologic) pulmonic regurgitation. 7. There is no pericardial effusion. 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
[2020-06-27] MEDS ORDERED: DOBUTamine DRIP for NUC MED 500 MG in DEXTROSE/WATER 1 250ML.BAG IV PRN (11:20)
[2020-06-27] MEDS: HEPARIN SODIUM,PORCINE 5,000 UNIT/ML 1 ML VIAL SQ SCH (12:50)
[2020-06-27] MEDS: GABAPENTIN 100 MG CAP PO SCH (12:53)
--- NOTE | 2020-06-27 13:44 | P.DS ---
Providers Date of admission: 06/26/20 15:18 Expected date of discharge: 06/27/20 Attending physician: Marquez Segundo MD Consults: 06/26/20 15:18 Consult Physician Urgent Consulting Provider: John Swenson Consult Reason/Comments: cp Do you want consulting provider notified?: Yes Primary care physician: Benjamin Telles MD Hospital Course: This is a 59-year-old female who presented to the emergency room with chest pain and was placed on observation for further evaluation of her medical problems noted below. 1. Chest pain, mostly atypical in nature. Twelve-lead EKG showed no acute ischemic changes. Initial troponin is negative 3 sets. Patient was seen and evaluated by cardiology. Dobutamine cardiac stress test done and was reported negative. Echocardiogram showed preserved ejection fraction with no significant valvular abnormalities. Patient was cleared by cardiology for discharge home. 2. Chronic medical problems: Restless leg syndrome, insomnia, and chronic arthritis Patient Condition at Discharge: Stable Plan - Discharge Summary Discharge Rx Participant: No New Discharge Prescriptions: Continue Garlic 1 tab PO DAILY Cholecalciferol [Vitamin D3 (25 Mcg = 1000 Iu)] 1,000 unit PO DAILY rOPINIRole HCL [Requip] 1 mg PO HS Multivitamins, Thera [Multivitamin (formulary)] 1 tab PO DAILY Latanoprost/Pf [Latanoprost 0.005% Eye Drop] 1 drop BOTH EYES HS Gabapentin [Neurontin] 100 mg PO TID Clotrimazole Cream [Lotrimin Cream] 1 applic TOPICAL BID Ciclopirox 8% Solution 1 applic TOPICAL DAILY Glucosam/Jj-Msm1/C/Charan/Bosw [Glucosamine-Chondroitin Tablet] 1 tab PO DAILY Discharge Medication List Cholecalciferol [Vitamin D3 (25 Mcg = 1000 Iu)] 1,000 unit PO DAILY 06/26/20 [History] Ciclopirox 8% Solution 1 applic TOPICAL DAILY 06/26/20 [History] Clotrimazole Cream [Lotrimin Cream] 1 applic TOPICAL BID 06/26/20 [History] Gabapentin [Neurontin] 100 mg PO TID 06/26/20 [History] Garlic 1 tab PO DAILY 06/26/20 [History] Glucosam/Jj-Msm1/C/Charan/Bosw [Glucosamine-Chondroitin Tablet] 1 tab PO DAILY 06/26/20 [History] Latanoprost/Pf [Latanoprost 0.005% Eye Drop] 1 drop BOTH EYES HS 06/26/20 [History] Multivitamins, Thera [Multivitamin (formulary)] 1 tab PO DAILY 06/26/20 [History] rOPINIRole HCL [Requip] 1 mg PO HS 06/26/20 [History] Follow up Appointment(s)/Referral(s): Benjamin Telles MD [Primary Care Provider] - 3 Days Discharge Disposition: HOME SELF-CARE
--- NOTE | 2020-06-27 14:29 | ECHOS ---
STRESS ECHOCARDIOGRAM DOBUTAMINE STRESS ECHO LUMASON: Vial INDICATIONS: Chest pain. MEDICATIONS: BASELINE HEART RATE: 86 BASELINE BLOOD PRESSURE: 140/61 MAXIMUM HEART RATE: 140 MAXIMUM BLOOD PRESSURE: 160/66 85% MPHR: 137 100% MPHR: 161 METS: MAXIMUM STAGE REACHED: TOTAL EXERCISE TIME: CLINICAL INFORMATION: Baseline rhythm is a sinus mechanism, rate of 86, normal axis and intervals, normal electrocardiogram. Baseline blood pressure 140/61 mmHg. Patient received infusion of dobutamine per protocol reaching peak rate 140 beats per minute which is equal to 87% maximum predicted heart rate. Peak blood pressure 160/66 mmHg. Electrocardiograph monitoring revealed rare PVCs. There was no evidence of diagnostic ischemic ST deviation. Baseline echocardiogram revealed normal wall motion. At peak infusion, there was normal wall motion augmentation with no hypokinesis or dyskinesis. CONCLUSION: 1. Normal electrocardiographic response to dobutamine infusion. 2. Normal stress echocardiogram with no evidence of stress-induced ischemia. MMODL / IJN: [id number] /
== END 2020-06-27 14:48 | disposition home or self-care (01) ==
LOC: EC 13:24 → 1SOBS 15:18
PROVIDERS: ADMIT Internal Medicine; ATTEND Internal Medicine
DX: R07.89 Other chest pain (principal); E87.70 Fluid overload, unspecified; I51.7 Cardiomegaly; R61 Generalized hyperhidrosis; E66.9 Obesity, unspecified; Z68.30 Body mass index [BMI] 30.0-30.9, adult; G25.81 Restless legs syndrome; G47.00 Insomnia, unspecified; M19.90 Unspecified osteoarthritis, unspecified site; Z79.899 Other long term (current) drug therapy; Z87.81 Personal history of (healed) traumatic fracture; Z98.891 History of uterine scar from previous surgery; Z80.9 Family history of malignant neoplasm, unspecified; Z83.3 Family history of diabetes mellitus
CPT/HCPCS: 93005 ×2; 96372; 99285; 36415; 93306; 93351; 83880; 80061; 80053; 83735; 84484; 85025; 85610; 85730; 71046; G0378 ×2; J1644

== ENCOUNTER → 2020-12-05 | Outpatient (CLI) | payer BC ==
--- NOTE | 2020-12-06 10:17 | MM ---
Reason for exam: clinical finding. Last mammogram was performed 13 years and 8 months ago. Physical Findings: Nurse did not find any significant physical abnormalities on exam. MG Diagnostic Mammo w CAD DEANNA Bilateral CC and MLO view(s) were taken. Prior study comparison: April 15, 2007, bilateral screening mammogram w/CAD. March 18, 2006, bilateral screening mammogram w/CAD. There are scattered fibroglandular densities. Ultrasound left breast pain at 6 o'clock.No significant new findings when compared with previous films. These results were verbally communicated with the patient and result sheet given to the patient on 12/05/20. ASSESSMENT: Incomplete: need additional imaging evaluation, BI-RAD 0 RECOMMENDATION: Ultrasound of the left breast.
--- NOTE | 2020-12-06 10:19 | USB ---
Reason for exam: additional evaluation requested from abnormal screening. US Breast Limited LT Left limited breast ultrasound including focal area of concern, retroareolar and axilla demonstrates no cystic or solid lesion seen. No sonographic finding at site of pain. These results were verbally communicated with the patient and result sheet given to the patient on 12/05/20. ASSESSMENT: Benign, BI-RAD 2 RECOMMENDATION: Routine screening mammogram of both breasts in 1 year. Manage on a clinical basis with regard to left breast pain.
== END | disposition home or self-care (01) ==
LOC: RADMAMWWP 12:59
PROVIDERS: ATTEND Family Medicine
DX: N64.4 Mastodynia (principal); N64.9 Disorder of breast, unspecified; R92.8 Other abnormal and inconclusive findings on diagnostic imaging of breast
CPT/HCPCS: 77066

== ENCOUNTER → 2020-12-14 | Outpatient (CLI) | payer BC ==
--- NOTE | 2020-12-14 17:12 | US ---
EXAMINATION TYPE: US pelvic complete DATE OF EXAM: 12/14/2020 COMPARISON: NONE CLINICAL HISTORY: N81.2 Incomplete uterovaginal prolapse. TECHNIQUE Transabdominal sonographic images of the pelvis were acquired. Transvaginal sonographic im ages were medically necessary to better assess the following anatomy: EXAM MEASUREMENTS: The uterus measures 6.8 cm in length by 3.3 cm AP by 4.47 m transverse for a volume of 52 mL. Endomet rial stripe measures 5.5 mm, which is thickened for a postmenopausal female. Differential diagnosis i ncludes endometrial cancer, endometrial hyperplasia, or endometrial polyp. The ovaries are not seen w ithin the adnexa with overlying bowel gas. No free fluid in the cul-de-sac. IMPRESSION: 1. Endometrial stripe is thickened measuring 5.5 mm for a postmenopausal female. Differential diagnos is includes endometrial cancer, endometrial hyperplasia, or endometrial polyp.
== END | disposition home or self-care (01) ==
LOC: RADUSWWP 14:29
PROVIDERS: ATTEND Family Medicine
DX: N81.2 Incomplete uterovaginal prolapse (principal); Z78.0 Asymptomatic menopausal state
CPT/HCPCS: 76856

== ENCOUNTER 2021-01-14 12:53 | Emergency (ER) | payer BC ==
[2021-01-14 13:01] VITALS: RESP 18; TEMP 98
[2021-01-14] MEDS ORDERED: SODIUM CHLORIDE 0.9% 1,000 ML IV STA (13:14)
[2021-01-14] MEDS ORDERED: SODIUM CHLORIDE 0.9% 500 ML 500 ML IV STA (13:14)
[2021-01-14] MEDS ORDERED: KETOROLAC 15 MG/ML 1 ML VIAL IVP STA (13:14)
--- NOTE | 2021-01-14 13:19 | ED ---
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 No cough or phlegm production no other current complaints or modifying factors - Related Data Home Medications Medication Instructions Recorded Confirmed Cholecalciferol [Vitamin D3 (25 25 mcg PO DAILY 06/26/20 01/14/21 Mcg = 1000 Iu)] Gabapentin [Neurontin] 100 mg PO TID 06/26/20 01/14/21 Garlic 1 tab PO DAILY 06/26/20 01/14/21 Glucosam/Jj-Msm1/C/Charan/Bosw 1 tab PO DAILY 06/26/20 01/14/21 [Glucosamine-Chondroitin Tablet] Latanoprost/Pf [Latanoprost 0.005% 1 drop BOTH EYES HS 06/26/20 01/14/21 Eye Drop] Multivitamins, Thera [Multivitamin 1 tab PO DAILY 06/26/20 01/14/21 (formulary)] rOPINIRole HCL [Requip] 1 mg PO HS 06/26/20 01/14/21 Allergies Allergy/AdvReac Type Severity Reaction Status Date / Time No Known Allergies Allergy Verified 01/14/21 13:00 Review of Systems ROS Statement: Those systems with pertinent positive or pertinent negative responses have been documented in the HPI. ROS Other: All systems not noted in ROS Statement are negative. Past Medical History Past Medical History: No Reported History Additional Past Medical History / Comment(s): fx left clavicle,hx FX RT WRIST-04/19/16 History of Any Multi-Drug Resistant Organisms: None Reported Past Surgical History: Section, Orthopedic Surgery Past Anesthesia/Blood Transfusion Reactions: No Reported Reaction Additional Past Anesthesia/Blood Transfusion Reaction / Comment(s): no hx blood transfusion Past Psychological History: No Psychological Hx Reported Smoking Status: Never smoker Past Alcohol Use History: None Reported Past Drug Use History: None Reported - Past Family History Mother History Unknown: Yes Family Medical History: Diabetes Mellitus Father Family Medical History: Cancer General Exam - General Exam Comments Initial Comments: This is a well-developed well-nourished awake alert oriented 3 female Limitations: no limitations General appearance: alert, in no apparent distress Head exam: Present: atraumatic, normocephalic, normal inspection Eye exam: Present: normal appearance, PERRL, EOMI. Absent: scleral icterus, conjunctival injection, periorbital swelling ENT exam: Present: normal exam, mucous membranes moist Neck exam: Present: normal inspection. Absent: tenderness, meningismus, lymphadenopathy Respiratory exam: Present: normal lung sounds bilaterally. Absent: respiratory distress, wheezes, rales, rhonchi, stridor Cardiovascular Exam: Present: regular rate, normal rhythm, normal heart sounds. Absent: systolic murmur, diastolic murmur, rubs, gallop, clicks GI/Abdominal exam: Present: soft, tenderness (Mild tenderness palpation of the left flank no guarding rebound masses or bruits), normal bowel sounds. Absent: distended, guarding, rebound, rigid Extremities exam: Present: normal inspection, full ROM, normal capillary refill. Absent: tenderness, pedal edema, joint swelling, calf tenderness Back exam: Present: normal inspection, CVA tenderness (L) Neurological exam: Present: alert, oriented X3, CN II-XII intact Psychiatric exam: Present: normal affect, normal mood Skin exam: Present: warm, dry, intact, normal color. Absent: rash Course Vital Signs 01/14/21 12:58 Temperature 98.0 F Pulse Rate 90 Respiratory 18 Rate Blood Pressure 155/94 O2 Sat by Pulse 98 Oximetry Medical Decision Making - Medical Decision Making The patient was evaluated by [facility] department she currently is not a threat to herself or anyone else and does not have any suicidal thoughts on my reevaluation. She is family are in agreement with going home and following up outpatient. He does have return parameters and safety plan. - Lab Data Result diagrams: 01/14/21 13:31 01/14/21 13:31 Lab Results 01/14/21 01/14/21 01/14/21 Range/Units 13:31 13:31 13:31 WBC 6.9 (3.8-10.6) k/uL RBC 4.93 (3.80-5.40) m/uL Hgb 14.0 (11.4-16.0) gm/dL Hct 44.7 (34.0-46.0) % MCV 90.6 (80.0-100.0) fL MCH 28.4 (25.0-35.0) pg MCHC 31.3 (31.0-37.0) g/dL RDW 13.3 (11.5-15.5) % Plt Count 173 (150-450) k/uL MPV 9.4 Neutrophils % 56 % Lymphocytes % 28 % Monocytes % 8 % Eosinophils % 5 % Basophils % 1 % Neutrophils # 3.9 (1.3-7.7) k/uL Lymphocytes # 2.0 (1.0-4.8) k/uL Monocytes # 0.5 (0-1.0) k/uL Eosinophils # 0.4 (0-0.7) k/uL Basophils # 0.1 (0-0.2) k/uL Sodium 138 (137-145) mmol/L Potassium 4.1 (3.5-5.1) mmol/L Chloride 108 H (98-107) mmol/L Carbon Dioxide 26 (22-30) mmol/L Anion Gap 4 mmol/L BUN 20 H (7-17) mg/dL Creatinine 0.50 L (0.52-1.04) mg/dL Est GFR (CKD-EPI)AfAm >90 (>60 ml/min/1.73 sqM) Est GFR (CKD-EPI)NonAf >90 (>60 ml/min/1.73 sqM) Glucose 112 H (74-99) mg/dL Plasma Lactic Acid Naveed 0.9 (0.7-2.0) mmol/L Calcium 9.6 (8.4-10.2) mg/dL Magnesium 1.8 (1.6-2.3) mg/dL Total Bilirubin 1.1 (0.2-1.3) mg/dL AST 30 (14-36) U/L ALT 27 (4-34) U/L Alkaline Phosphatase 94 (38-126) U/L Creatine Kinase 78 (30-135) U/L Troponin I (0.000-0.034) ng/mL Total Protein 6.3 (6.3-8.2) g/dL Albumin 3.8 (3.5-5.0) g/dL Amylase 61 (30-110) U/L Lipase 89 (23-300) U/L Urine Color Urine Appearance (Clear) Urine pH (5.0-8.0) Ur Specific [place] (1.001-1.035) Urine Protein (Negative) Urine Glucose (UA) (Negative) Urine Ketones (Negative) Urine Blood (Negative) Urine Nitrite (Negative) Urine Bilirubin (Negative) Urine Urobilinogen (<2.0) mg/dL Ur Leukocyte Esterase (Negative) Urine RBC (0-5) /hpf Urine WBC (0-5) /hpf Ur Squamous Epith Cells (0-4) /hpf Urine Bacteria (None) /hpf Urine Mucus (None) /hpf 01/14/21 01/14/21 Range/Units 13:31 13:32 WBC (3.8-10.6) k/uL RBC (3.80-5.40) m/uL Hgb (11.4-16.0) gm/dL Hct (34.0-46.0) % MCV (80.0-100.0) fL MCH (25.0-35.0) pg MCHC (31.0-37.0) g/dL RDW (11.5-15.5) % Plt Count (150-450) k/uL MPV Neutrophils % % Lymphocytes % % Monocytes % % Eosinophils % % Basophils % % Neutrophils # (1.3-7.7) k/uL Lymphocytes # (1.0-4.8) k/uL Monocytes # (0-1.0) k/uL Eosinophils # (0-0.7) k/uL Basophils # (0-0.2) k/uL Sodium (137-145) mmol/L Potassium (3.5-5.1) mmol/L Chloride (98-107) mmol/L Carbon Dioxide (22-30) mmol/L Anion Gap mmol/L BUN (7-17) mg/dL Creatinine (0.52-1.04) mg/dL Est GFR (CKD-EPI)AfAm (>60 ml/min/1.73 sqM) Est GFR (CKD-EPI)NonAf (>60 ml/min/1.73 sqM) Glucose (74-99) mg/dL Plasma Lactic Acid Naveed (0.7-2.0) mmol/L Calcium (8.4-10.2) mg/dL Magnesium (1.6-2.3) mg/dL Total Bilirubin (0.2-1.3) mg/dL AST (14-36) U/L ALT (4-34) U/L Alkaline Phosphatase (38-126) U/L Creatine Kinase (30-135) U/L Troponin I <0.012 (0.000-0.034) ng/mL Total Protein (6.3-8.2) g/dL Albumin (3.5-5.0) g/dL Amylase (30-110) U/L Lipase (23-300) U/L Urine Color Yellow Urine Appearance Cloudy H (Clear) Urine pH 6.0 (5.0-8.0) Ur Specific [place] 1.030 (1.001-1.035) Urine Protein Trace H (Negative) Urine Glucose (UA) Negative (Negative) Urine Ketones Negative (Negative) Urine Blood Negative (Negative) Urine Nitrite Negative (Negative) Urine Bilirubin Negative (Negative) Urine Urobilinogen <2.0 (<2.0) mg/dL Ur Leukocyte Esterase Large H (Negative) Urine RBC 2 (0-5) /hpf Urine WBC 33 H (0-5) /hpf Ur Squamous Epith Cells 21 H (0-4) /hpf Urine Bacteria Rare H (None) /hpf Urine Mucus Few H (None) /hpf Disposition Clinical Impression: Adjustment disorder of adolescence Disposition: HOME SELF-CARE Condition: Good Instructions (If sedation given, give patient instructions): Mood Disorders (ED) Is patient prescribed a controlled substance at d/c from ED?: No Referrals: Felicia Tenorio MD [Primary Care Provider] - 1-2 days
[2021-01-14 13:39] LABS: Basophils # (A) 0.1 k/uL (0-0.2); Basophils % (A) 1 %; Eosinophils # (A) 0.4 k/uL (0-0.7); Eosinophils % (A) 5 %; HCT 44.7 % (34.0-46.0); Lymphocytes % (A) 28 %; MCH 28.4 pg (25.0-35.0); MCHC 31.3 g/dL (31.0-37.0); MCV 90.6 fL (80.0-100.0); Mean Platelet Volume 9.4; Monocytes # (A) 0.5 k/uL (0-1.0); Monocytes % (A) 8 %; Neutrophils # (A) 3.9 k/uL (1.3-7.7); Neutrophils % (A) 56 %; Platelet Count 173 k/uL (150-450); RBC 4.93 m/uL (3.80-5.40); RDW 13.3 % (11.5-15.5); WBC 6.9 k/uL (3.8-10.6)
[2021-01-14 13:51] LABS: Appearance,Urine Cloudy (Clear); Bacteria,Urine Rare /hpf; Bilirubin,Urine Negative (Negative); Blood,Urine Negative (Negative); Color,Urine Yellow; Glucose,Urine (UA) Negative (Negative); Ketones,Urine Negative (Negative); Leukocyte Esterase,Urine Large (Negative); Mucus,Urine Few /hpf; Nitrite,Urine Negative (Negative); Protein,Urine Trace (Negative); RBC,Urine 2 /hpf (0-5); Squamous Epithelial Cell,Urine 21 /hpf (0-4); Urobilinogen,Urine <2.0 mg/dL (<2.0); WBC,Urine 33 /hpf (0-5)
[2021-01-14 13:51] LABS: ALT 27 U/L (4-34); AST 30 U/L (14-36); African American GFR (CKD) >90 (>60 ml/min/1.73 sqM); Albumin 3.8 g/dL (3.5-5.0); Alkaline Phosphatase 94 U/L (38-126); Amylase 61 U/L (30-110); Anion Gap 4 mmol/L; Blood Urea Nitrogen 20 mg/dL (7-17); Calcium 9.6 mg/dL (8.4-10.2); Carbon Dioxide 26 mmol/L (22-30); Chloride 108 mmol/L (98-107); Creatine Kinase 78 U/L (30-135); Glucose 112 mg/dL (74-99); Lipase 89 U/L (23-300); Magnesium 1.8 mg/dL (1.6-2.3); Non-African American GFR(CKD) >90 (>60 ml/min/1.73 sqM); Potassium 4.1 mmol/L (3.5-5.1); Sodium 138 mmol/L (137-145); Total Bilirubin 1.1 mg/dL (0.2-1.3); Total Protein 6.3 g/dL (6.3-8.2)
--- NOTE | 2021-01-14 14:06 | XR ---
EXAMINATION TYPE: XR chest 2V DATE OF EXAM: 01/14/2021 COMPARISON: 06/26/2020 INDICATION: Left-sided chest pain TECHNIQUE: Frontal and lateral views of the chest are obtained. FINDINGS: The heart size is normal. The pulmonary vasculature is normal. The lungs are clear. Multiple old left rib fractures are evident. There is prior open reduction inte rnal fixation of the clavicle. IMPRESSION: 1. No acute pulmonary process.
--- NOTE | 2021-01-14 14:07 | XR ---
EXAMINATION TYPE: XR KUB DATE OF EXAM: 01/14/2021 COMPARISON: None HISTORY: Abdomen pain TECHNIQUE: AP abdomen upright view FINDINGS: No free air is under the diaphragm. No suspicious air-fluid levels or differential air-flui d levels are present. Psoas margins are normal. No mass effect is evident. Osseous structures appear intact. IMPRESSION: 1. No acute abnormality AP upright abdomen
--- NOTE | 2021-01-14 14:57 | ED ---
Medical Decision Making - Medical Decision Making Reevaluation patient did feel improved with still a small amount flank pain. She does demonstrate letting her urine. CAT scan is ordered. The above discharge information was erroneously placed in this patient's chart. The computer flipped into her chart during the dictation in another patient's chart. Patient's CAT scan shows evidence of a stone in the left kidney no definitive hydronephrosis at this time the patient's presentation is consistent with a kidney stone as well as UTI the patient be placed on appropriate medication we did recommend increase oral fluids she'll follow-up with Dr. claudio. She'll be given a note for work for the next 2 days. She does get physical therapy for left knee this is on 3 days from now she will make that decision at that time. - Lab Data Result diagrams: 01/14/21 13:31 01/14/21 13:31 Lab Results 01/14/21 01/14/21 01/14/21 Range/Units 13:31 13:31 13:31 WBC 6.9 (3.8-10.6) k/uL RBC 4.93 (3.80-5.40) m/uL Hgb 14.0 (11.4-16.0) gm/dL Hct 44.7 (34.0-46.0) % MCV 90.6 (80.0-100.0) fL MCH 28.4 (25.0-35.0) pg MCHC 31.3 (31.0-37.0) g/dL RDW 13.3 (11.5-15.5) % Plt Count 173 (150-450) k/uL MPV 9.4 Neutrophils % 56 % Lymphocytes % 28 % Monocytes % 8 % Eosinophils % 5 % Basophils % 1 % Neutrophils # 3.9 (1.3-7.7) k/uL Lymphocytes # 2.0 (1.0-4.8) k/uL Monocytes # 0.5 (0-1.0) k/uL Eosinophils # 0.4 (0-0.7) k/uL Basophils # 0.1 (0-0.2) k/uL Sodium 138 (137-145) mmol/L Potassium 4.1 (3.5-5.1) mmol/L Chloride 108 H (98-107) mmol/L Carbon Dioxide 26 (22-30) mmol/L Anion Gap 4 mmol/L BUN 20 H (7-17) mg/dL Creatinine 0.50 L (0.52-1.04) mg/dL Est GFR (CKD-EPI)AfAm >90 (>60 ml/min/1.73 sqM) Est GFR (CKD-EPI)NonAf >90 (>60 ml/min/1.73 sqM) Glucose 112 H (74-99) mg/dL Plasma Lactic Acid Naveed 0.9 (0.7-2.0) mmol/L Calcium 9.6 (8.4-10.2) mg/dL Magnesium 1.8 (1.6-2.3) mg/dL Total Bilirubin 1.1 (0.2-1.3) mg/dL AST 30 (14-36) U/L ALT 27 (4-34) U/L Alkaline Phosphatase 94 (38-126) U/L Creatine Kinase 78 (30-135) U/L Troponin I (0.000-0.034) ng/mL Total Protein 6.3 (6.3-8.2) g/dL Albumin 3.8 (3.5-5.0) g/dL Amylase 61 (30-110) U/L Lipase 89 (23-300) U/L Urine Color Urine Appearance (Clear) Urine pH (5.0-8.0) Ur Specific [place] (1.001-1.035) Urine Protein (Negative) Urine Glucose (UA) (Negative) Urine Ketones (Negative) Urine Blood (Negative) Urine Nitrite (Negative) Urine Bilirubin (Negative) Urine Urobilinogen (<2.0) mg/dL Ur Leukocyte Esterase (Negative) Urine RBC (0-5) /hpf Urine WBC (0-5) /hpf Ur Squamous Epith Cells (0-4) /hpf Urine Bacteria (None) /hpf Urine Mucus (None) /hpf 01/14/21 01/14/21 Range/Units 13:31 13:32 WBC (3.8-10.6) k/uL RBC (3.80-5.40) m/uL Hgb (11.4-16.0) gm/dL Hct (34.0-46.0) % MCV (80.0-100.0) fL MCH (25.0-35.0) pg MCHC (31.0-37.0) g/dL RDW (11.5-15.5) % Plt Count (150-450) k/uL MPV Neutrophils % % Lymphocytes % % Monocytes % % Eosinophils % % Basophils % % Neutrophils # (1.3-7.7) k/uL Lymphocytes # (1.0-4.8) k/uL Monocytes # (0-1.0) k/uL Eosinophils # (0-0.7) k/uL Basophils # (0-0.2) k/uL Sodium (137-145) mmol/L Potassium (3.5-5.1) mmol/L Chloride (98-107) mmol/L Carbon Dioxide (22-30) mmol/L Anion Gap mmol/L BUN (7-17) mg/dL Creatinine (0.52-1.04) mg/dL Est GFR (CKD-EPI)AfAm (>60 ml/min/1.73 sqM) Est GFR (CKD-EPI)NonAf (>60 ml/min/1.73 sqM) Glucose (74-99) mg/dL Plasma Lactic Acid Naveed (0.7-2.0) mmol/L Calcium (8.4-10.2) mg/dL Magnesium (1.6-2.3) mg/dL Total Bilirubin (0.2-1.3) mg/dL AST (14-36) U/L ALT (4-34) U/L Alkaline Phosphatase (38-126) U/L Creatine Kinase (30-135) U/L Troponin I <0.012 (0.000-0.034) ng/mL Total Protein (6.3-8.2) g/dL Albumin (3.5-5.0) g/dL Amylase (30-110) U/L Lipase (23-300) U/L Urine Color Yellow Urine Appearance Cloudy H (Clear) Urine pH 6.0 (5.0-8.0) Ur Specific [place] 1.030 (1.001-1.035) Urine Protein Trace H (Negative) Urine Glucose (UA) Negative (Negative) Urine Ketones Negative (Negative) Urine Blood Negative (Negative) Urine Nitrite Negative (Negative) Urine Bilirubin Negative (Negative) Urine Urobilinogen <2.0 (<2.0) mg/dL Ur Leukocyte Esterase Large H (Negative) Urine RBC 2 (0-5) /hpf Urine WBC 33 H (0-5) /hpf Ur Squamous Epith Cells 21 H (0-4) /hpf Urine Bacteria Rare H (None) /hpf Urine Mucus Few H (None) /hpf Disposition Clinical Impression: Kidney stone on left side, Hematuria, Left flank pain Disposition: HOME SELF-CARE Condition: Good Instructions (If sedation given, give patient instructions): Urinary Tract Infection in Women (ED), Kidney Stones (ED), Flank Pain (ED) Prescriptions: Ibuprofen 800 mg PO Q6HR PRN #20 tablet PRN Reason: Pain Cephalexin [Keflex] 500 mg PO Q8HR 1 Days #21 cap Is patient prescribed a controlled substance at d/c from ED?: No Referrals: Felicia Tenorio MD [Primary Care Provider] - 1-2 days
--- NOTE | 2021-01-14 15:22 | CT ---
EXAMINATION TYPE: CT abdomen pelvis wo con DATE OF EXAM: 01/14/2021 COMPARISON: None HISTORY: Left flank pain. CT DLP: 812.4 mGycm Automated exposure control for dose reduction was used. Images obtained from the diaphragm to the floor the pelvis with no contrast. There is some mild scarring and subsegmental atelectasis at the lung bases. There is no pericardial e ffusion. Heart is borderline enlarged. There is no pleural effusion. Liver spleen pancreas stomach gallbladder appear intact. The bile ducts are not dilated. There is no adrenal mass. Kidneys have normal size. There are left renal apparent parapelvic cysts. T he ureters are not dilated. Bladder distends smoothly. There are phleboliths in the pelvis. I see no definite ureteral calculus. uterus is anteverted. There is no inguinal hernia. There is no free flui d in the pelvis. There is no mesenteric edema. There is no ascites or free air. There is 1 mm calculu s lower pole left kidney. The appendix is posterior and appears normal. There is no evidence of a bow el obstruction. There are few sigmoid diverticula. There is no diverticulitis. There is intact lumbar spine. There is no compression fracture. Vertebra have normal alignment. The b kraig pelvis is intact. IMPRESSION: Small left renal calculus. Left renal parapelvic cysts. No definite evidence for a ureteral calculus. Ureters are not dilated. Normal appendix.
[2021-01-14 16:42] VITALS: BP 148/83; PULSE 91
== END 2021-01-14 16:20 | disposition home or self-care (01) ==
LOC: EC 12:53
DX: F43.20 Adjustment disorder, unspecified (principal)
CPT/HCPCS: 36415; 80053; 82150; 82550; 83605; 83690; 83735; 84484; 85025; 81001; 87086; 71046; 74018; 74176; 99284; 96374; 96361; J1885

== ENCOUNTER 2021-02-28 06:10 | Day surgery (SDC) | payer BC ==
[2021-02-26 09:49] VITALS: BMI 32.9
--- NOTE | 2021-02-27 19:19 | P.HPOB ---
History of Present Illness H&P Date: 02/27/21 Chief Complaint: Endometrial thickening on ultrasound This is a 60 y.o. female, 3, para 3, who presents for dilatation and curettage with hysteroscopy for endometrial thickening on ultrasound. Ultrasound was performed as part of work up for uterine prolapse. Endometrial thickness is 5.5 mm. She denies any vaginal bleeding. OB Hx: . At least 1 per patient. 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 Last pap smear 01/2021-within normal limits. Social Hx: . Works at [employer]. Review of Systems Constitutional: Denies chills, Denies fever Eyes: denies blurred vision, denies pain Ears, nose, mouth and throat: Denies headache, Denies sore throat Cardiovascular: Denies chest pain, Denies shortness of breath Respiratory: Denies cough Gastrointestinal: Reports constipation, Denies abdominal pain, Denies diarrhea, Denies nausea, Denies vomiting Genitourinary: Reports pelvic pain, Denies abnormal vaginal bleeding, Denies dysuria, Denies hematuria Menstruation: Reports postmenopausal Musculoskeletal: Reports muscle cramps, Denies myalgias Integumentary: Denies pruritus, Denies rash Neurological: Reports numbness (legs) Psychiatric: Reports memory loss, Denies anxiety, Denies depression Endocrine: Reports flushing, Denies fatigue, Denies weight change Past Medical History Past Medical History: Osteoarthritis (OA) Additional Past Medical History / Comment(s): fx left clavicle,hx FX RT WRIST- 04/19/16. RLS,lower pelvic pain, nerve pain History of Any Multi-Drug Resistant Organisms: None Reported Past Surgical History: Section, Orthopedic Surgery Additional Past Surgical History / Comment(s): lt shoulder surgery with hardware Past Anesthesia/Blood Transfusion Reactions: No Reported Reaction Additional Past Anesthesia/Blood Transfusion Reaction / Comment(s): no hx blood transfusion Past Psychological History: No Psychological Hx Reported Smoking Status: Never smoker Past Alcohol Use History: None Reported Past Drug Use History: None Reported - Past Family History Mother History Unknown: Yes Family Medical History: Diabetes Mellitus Father Family Medical History: Cancer Medications and Allergies Home Medications Medication Instructions Recorded Confirmed Type Cholecalciferol [Vitamin D3 (25 25 mcg PO DAILY 06/26/20 02/28/21 History Mcg = 1000 Iu)] Gabapentin [Neurontin] 100 mg PO TID 06/26/20 02/28/21 History Garlic 1 tab PO DAILY 06/26/20 02/28/21 History Glucosam/Jj-Msm1/C/Charan/Bosw 1 tab PO DAILY 06/26/20 02/28/21 History [Glucosamine-Chondroitin Tablet] Latanoprost/Pf [Latanoprost 0.005% 1 drop BOTH EYES HS 06/26/20 02/28/21 History Eye Drop] Multivitamins, Thera [Multivitamin 1 tab PO DAILY 06/26/20 02/28/21 History (formulary)] rOPINIRole HCL [Requip] 1 mg PO HS 06/26/20 02/28/21 History Ibuprofen 800 mg PO Q6HR PRN #20 tablet 01/14/21 02/28/21 Rx Celecoxib [CeleBREX] 200 mg PO DAILY PRN 02/26/21 02/28/21 History Allergies Allergy/AdvReac Type Severity Reaction Status Date / Time No Known Allergies Allergy Verified 02/28/21 06:38 Exam Osteopathic Statement: *. No significant issues noted on an osteopathic structural exam other than those noted in the History and Physical/Consult. Gen: Well-developed, well-nourished female in no acute distress HEENT: within normal limits Heart: regular rate and rhythm Lungs: clear to auscultation bilaterally Abdomen: soft, non-tender Pelvic: uterus small, anteverted, non-tender with grade 3 uterine prolapse, grade 3 cystocele, and 1st degree rectocele. No adnexal masses or tenderness noted. Extremities: neg. Wicho's Assessment and Plan (1) Endometrial thickening on ultrasound Current Visit: No Status: Acute Code(s): R93.89 - ABNORMAL FINDINGS ON DX IMAGING OF OTH BODY STRUCTURES SNOMED Code(s): 555189475 Plan: Proceed with dilatation and curettage with hysteroscopy. I have discussed the risks, benefits, and alternative therapies for the above- mentioned procedure and for both sedation/anesthesia as well as necessary blood products administration, if indicated, as they pertain to this patient. The patient has indicated her understanding and acceptance of the risks and procedures discussed.
[~2021-02-28 06:10] MED LIST changes: -DEXAMETHASONE SOD PHOSPHATE 10 MG/ML 1 ML VIAL IV ONE; +DEXAMETHASONE SOD PHOSPHATE 4 MG/ML 1 ML VIAL IV ONE; -HYDROmorphone 0.5 MG/0.5 ML SYRINGE IVP PRN; -LIDOCAINE 1% 20 ML VIAL (10MG/ML) FOR IV START INTRADERMA PRN; -MIDAZOLAM 2 MG/2 ML VIAL IV PRN; +Pre Op ABX Message 1 EACH MISC MISCELLANE ONE; -SCOPOLAMINE 1.5MG/72HR PATCH TRANSDERM ONE
[2021-02-28] MEDS ORDERED: HYDROmorphone 0.5 MG/0.5 ML SYRINGE IVP PRN (07:00)
[2021-02-28] MEDS ORDERED: fentaNYL (PF) 50 MCG/ML 2 ML AMP ONE (07:29)
[2021-02-28] MEDS ORDERED: MIDAZOLAM 2 MG/2 ML VIAL ONE (07:29)
[2021-02-28] MEDS ORDERED: LIDOCAINE 1% INJ 10MG/ML (20 ML MDV) ONE (07:29)
[2021-02-28] MEDS ORDERED: PROPOFOL 10 MG/ML 20 ML VIAL IV ONE (07:29)
--- NOTE | 2021-02-28 07:56 | P.OP ---
Date of Procedure: 02/28/21 Preoperative Diagnosis: Endometrial thickening on ultrasound Postoperative Diagnosis: Same Procedure(s) Performed: Dilation and curettage with hysteroscopy Anesthesia: other (Mask general) Surgeon: Ciara Chand Estimated Blood Loss (ml): 3 Pathology: other (Endometrial curettings) Condition: stable Disposition: same day Indications for Procedure: This is a 60 y.o. female, 3, para 3, who presents for dilatation and curettage with hysteroscopy for endometrial thickening on ultrasound. Ultrasound was performed as part of work up for uterine prolapse. Endometrial thickness is 5.5 mm. She denies any vaginal bleeding. Operative Findings: Uterus is mid position with grade 2-3 uterine prolapse noted. No adnexal masses are palpated. There is a grade 3 cystocele and grade 1 rectocele also noted. Upon hysteroscopy, a relatively atrophic pattern is noted. Scant endometrial curettings are obtained. Description of Procedure: The patient is taken to the operating room where she is placed in the dorsal lithotomy position. She is prepped and draped in the normal sterile fashion. Her bladder is drained with a catheter. Examination is performed under anesthesia. Uterus is found to be mid position with grade 2-3 uterine prolapse and draped 3 cystocele was also noted. No adnexal masses are palpated. Grade 1 rectocele is also noted. Next a weighted speculum was placed in the patient's vagina and she was placed in slight Trendelenburg position. A right angle retractor was used to visualize the cervix. The anterior lip of the cervix is grasped with a single-tooth tenaculum. Next the uterus is sounded to 9 cm. The cervix is gently dilated with Aldana dilators until a hysteroscope could be passed. Hysteroscopy is performed using normal saline. The above noted findings are made and pictures are taken. Next the hysteroscope is withdrawn. The cervix is gently dilated further and a small uterine curet was used to perform uterine curettings until a gritty texture was noted. Scant endometrial tissue is obtained. This is removed from the field and sent to pathology. Next the single-tooth tenaculum is removed and no bleeding is noted. All instruments are removed from the vagina. All sponge counts are correct. Patient is then taken to recovery room in stable condition.
[2021-02-28 08:10] VITALS: TEMP 97
[2021-02-28] MEDS ORDERED: KETOROLAC 15 MG/ML 1 ML VIAL ONE (08:13)
[2021-02-28] MEDS ORDERED: KETOROLAC 15 MG/ML 1 ML VIAL IVP ONE (08:16)
[2021-02-28 08:19] VITALS: RESP 16
[2021-02-28 09:01] VITALS: BP 122/71
[2021-02-28 09:18] VITALS: PULSE 77
== END 2021-02-28 09:50 | disposition home or self-care (01) ==
LOC: OR 06:10
PROVIDERS: ATTEND Obstetrics & Gynecology
DX: N85.8 Other specified noninflammatory disorders of uterus (principal); R93.89 Abnormal findings on diagnostic imaging of other specified body structures; M19.90 Unspecified osteoarthritis, unspecified site; G25.81 Restless legs syndrome; Z87.81 Personal history of (healed) traumatic fracture; Z98.890 Other specified postprocedural states; Z83.3 Family history of diabetes mellitus; Z79.899 Other long term (current) drug therapy
CPT/HCPCS: 88305; 58558; J2250; J1100; J2405; J2001; J3010; J1885; J2704

== ENCOUNTER → 2021-06-06 | Outpatient (CLI) | payer BC ==
--- NOTE | 2021-06-06 16:14 | BD ---
EXAMINATION TYPE: Axial Bone Density DATE OF EXAM: 06/06/2021 COMPARISON: NONE CLINICAL HISTORY: Height: 62 Weight: 190.4 FRAX RISK QUESTIONS: Alcohol (3 or more units per day): no Family History (Parent hip fracture): no Glucocorticoids (More than 3mos): no (Ex: prednisone, prednisolone, methylprednisolone, dexamethasone, and hydrocortisone). History of Fracture in Adulthood: yes Secondary Osteoporosis: 1. Type 1 Diabetes: no 2. Hyperthyroidism: no 3. Menopause before 45: no 4. Malnutrition: no 5. Chronic liver disease: no Rheumatoid Arthritis: no Current Tobacco Use: no RISK FACTORS HISTORY OF: Surgery to Spine/Hip(right/left)/Wrist (right/left): no Family History of Osteoporosis: no Active: yes Diet low in dairy products/other sources of calcium: no Postmenopausal woman: yes Lost more than 2 inches in height since high school: no MEDICATIONS: vitamins Additional History: EXAM MEASUREMENTS: Bone mineral densitometry was performed using the [employer] System. Bone mineral density as measured about the Lumbar spine is: ----- L1-L4(G/cm2): 1.094 T Score Values are as follows: ----- L2: 0.2 ----- L3: -0.6 ----- L4: -0.8 ----- L1-L4: -0.7 Bone mineral density : baseline Bone mineral density about the R hip (g/cm2): 0.688 Bone mineral density about the L hip (g/cm2): 0.682 T Score values are as follows: -----R Neck: -2.5 -----L Neck: -2.6 -----R Total: -2.6 -----L Total: -2.7 Bone mineral density : baseline IMPRESSION: Osteoporosis (T Score less than -2.5). There is increased fracture risk and therapy is usually indicated based on age. Re-Screen 1-2 years. NOTE: T-SCORE=SD OF THE YOUNG ADULT MEAN.
== END | disposition home or self-care (01) ==
LOC: RADBDWWP 15:22
PROVIDERS: ATTEND Obstetrics & Gynecology
DX: M81.0 Age-related osteoporosis without current pathological fracture (principal); N95.1 Menopausal and female climacteric states
CPT/HCPCS: 77080

== ENCOUNTER → 2021-11-12 | Outpatient (CLI) | payer BC ==
--- NOTE | 2021-11-12 08:48 | US ---
EXAMINATION TYPE: US abdomen complete DATE OF EXAM: 11/12/2021 COMPARISON: CT 01/14/2021 CLINICAL HISTORY: 61-year-old female R10.13 EPIGASTRIC PAIN. TECHNIQUE: Multiple sonographic images of the abdomen are obtained. FINDINGS: EXAM MEASUREMENTS: Liver Length: 14.1 cm Gallbladder Wall: 0.2 cm CBD: 0.3 cm Spleen: 8.7 cm Right Kidney: 11.2 x 4.0 x 5.4 cm Left Kidney: 11.0 x 5.2 x 6.2 cm Pancreas: Most of the pancreas is visualized and shows no gross abnormality. Liver: wnl Gallbladder: non shadowing mobile debris. Junctional fold noted. No hydropic change, wall thickening , or surrounding fluid. Evidence for sonographic Herbert's sign: No CBD: wnl Spleen: wnl Right Kidney: lateral cyst measures 1.2 x 1.4 x 1.3 cm. No hydronephrosis. Left Kidney: parapelvic cyst measures 2.3 x 1.2 x 2.0 cm. No hydronephrosis. Upper IVC: wnl Abd Aorta: wnl IMPRESSION: Some mobile debris/nonshadowing calculi within the gallbladder. No biliary ductal dilatation.
== END | disposition home or self-care (01) ==
LOC: RADUSWWP 06:54
PROVIDERS: ATTEND Family Medicine
DX: R10.13 Epigastric pain (principal)
CPT/HCPCS: 76700

== ENCOUNTER → 2022-01-02 | Outpatient (CLI) | payer BC ==
--- NOTE | 2022-01-02 20:08 | US ---
EXAMINATION TYPE: US venous doppler duplex LE LT DATE OF EXAM: 01/02/2022 12:42 PM COMPARISON: NONE CLINICAL HISTORY: R22.40 LOCALIZED SWELLING,MASS AND LUMP. redness/pain/edema left leg. left knee lorrie amy 11/29/21 SIDE PERFORMED: left TECHNIQUE: The lower extremity deep venous system is examined utilizing real time linear array sonog sil with graded compression, doppler sonography and color-flow sonography. VESSELS IMAGED: Common Femoral Vein Deep Femoral Vein Greater Saphenous Vein * Femoral Vein Popliteal Vein Small Saphenous Vein * Proximal Calf Veins (* superficial vessels) Left Leg: no evidence of DVT as visualized IMPRESSION: 1 left lower extremity ultrasound negative for deep venous thrombosis.
== END | disposition home or self-care (01) ==
LOC: RADUSWWP 12:15
PROVIDERS: ATTEND Family Medicine
DX: R22.42 Localized swelling, mass and lump, left lower limb (principal)

== ENCOUNTER 2022-01-22 13:25 | Emergency (ER) | payer BC ==
[2022-01-22 13:31] VITALS: TEMP 98.1
[2022-01-22 13:37] LABS: Glucose,Whole Blood 88 mg/dL (70-110)
[2022-01-22 14:17] LABS: African American GFR (CKD) >90 (>60 ml/min/1.73 sqM); Anion Gap 11 mmol/L; Blood Urea Nitrogen 19 mg/dL (7-17); Calcium 9.6 mg/dL (8.4-10.2); Carbon Dioxide 24 mmol/L (22-30); Chloride 103 mmol/L (98-107); Glucose 86 mg/dL (74-99); Magnesium 1.8 mg/dL (1.6-2.3); Non-African American GFR(CKD) >90 (>60 ml/min/1.73 sqM); Potassium 4.2 mmol/L (3.5-5.1); Sodium 138 mmol/L (137-145)
--- NOTE | 2022-01-22 14:39 | CT ---
EXAMINATION TYPE: CT brain wo con CT DLP: 1127.4 mGycm, Automated exposure control for dose reduction was used. DATE OF EXAM: 01/22/2022 2:34 PM COMPARISON: 12/17/2018. CLINICAL INDICATION:Female, 61 years old with history of numbness left leg, concern for stroke. Day 4 ., left leg numbness and slurred speech x3-4 days. TECHNIQUE: Brain: Axial CT images of the brain were obtained with coronal and sagittal reformats created and rev iewed. Contrast used: None. Oral contrast used: None. FINDINGS: Brain: Extra-axial spaces: No abnormal extra-axial fluid collections. Ventricular system: Within normal limits Cerebral parenchyma: No acute intraparenchymal hemorrhage or mass effect. The mckeon-white junction is well differentiated. Cerebellum: Unremarkable. Mass effect: No evidence of midline shift. Intracranial vasculature: unremarkable Soft tissues: Normal. Calvarium/osseous structures: No depressed skull fracture. Paranasal sinuses and mastoid air cells: Mild scattered paranasal sinus disease. Visualized orbits: Orbital contents are intact. IMPRESSION: No acute intracranial process.
[2022-01-22 14:41] LABS: Basophils % (A) 1 %; Eosinophils # (A) 0.2 k/uL (0-0.7); Eosinophils % (A) 3 %; HCT 42.5 % (34.0-46.0); HGB 13.3 gm/dL (11.4-16.0); Hypochromasia Slight; Lymphocytes # (A) 2.4 k/uL (1.0-4.8); Lymphocytes % (A) 28 %; MCH 27.4 pg (25.0-35.0); MCHC 31.2 g/dL (31.0-37.0); MCV 87.8 fL (80.0-100.0); Mean Platelet Volume 9.5; Monocytes # (A) 0.7 k/uL (0-1.0); Monocytes % (A) 8 %; Neutrophils % (A) 58 %; Platelet Count 201 k/uL (150-450); RBC 4.84 m/uL (3.80-5.40); RDW 14.2 % (11.5-15.5); WBC 8.6 k/uL (3.8-10.6)
--- NOTE | 2022-01-22 14:43 | XR ---
EXAMINATION TYPE: XR tibia fibula LT DATE OF EXAM: 01/22/2022 CLINICAL HISTORY: pain TECHNIQUE: AP and lateral images of the left tibia and fibula are obtained. COMPARISON: None. FINDINGS: There is no acute fracture/dislocation evident. The joint spaces appear within normal robbins its. Postoperative total knee arthroplasty right knee. The overlying soft tissue appears unremarkabl e. IMPRESSION: There is no acute fracture or dislocation seen. ICD 10 NO FRACTURE, INITIAL EVALUATION
--- NOTE | 2022-01-22 14:46 | XR ---
EXAMINATION TYPE: XR knee complete bilateral DATE OF EXAM: 01/22/2022 CLINICAL HISTORY: pain TECHNIQUE: Three views of the bilateral knees are obtained. COMPARISON: None. FINDINGS: There is no acute fracture/dislocation. Total knee arthroplasty is seen bilaterally with f emoral and tibial components appearing well seated. The overlying soft tissue appears unremarkable. IMPRESSION: There is no acute fracture or dislocation.ICD 10 NO FRACTURE, INITIAL EVALUATION
[2022-01-22 15:40] LABS: Appearance,Urine Clear (Clear); Bilirubin,Urine Negative (Negative); Blood,Urine Negative (Negative); Color,Urine Light Yellow; Glucose,Urine (UA) Negative (Negative); Ketones,Urine Negative (Negative); Leukocyte Esterase,Urine Negative (Negative); Nitrite,Urine Negative (Negative); PH, Urine 5.5 (5.0-8.0); Protein,Urine Negative (Negative); Specific Gravity,Urine 1.011 (1.001-1.035); Urobilinogen,Urine <2.0 mg/dL (<2.0)
[2022-01-22] MEDS ORDERED: MORPHINE SULFATE 4 MG/ML SYRINGE IVP STA (16:01)
--- NOTE | 2022-01-22 16:10 | US ---
EXAMINATION TYPE: US venous doppler duplex LE LT DATE OF EXAM: 01/22/2022 1:57 PM COMPARISON: US 2021 CLINICAL HISTORY: leg numbness/calf tenderness. Left leg pain and numbness SIDE PERFORMED: Left TECHNIQUE: The lower extremity deep venous system is examined utilizing real time linear array sonog sil with graded compression, doppler sonography and color-flow sonography. VESSELS IMAGED: Common Femoral Vein Deep Femoral Vein Greater Saphenous Vein * Femoral Vein Popliteal Vein Small Saphenous Vein * Proximal Calf Veins (* superficial vessels) Left Leg: Appears negative for DVT, Grayscale, color doppler, spectral doppler imaging performed of the deep veins of the lower extremities. There is normal flow, compressibility, vascular waveforms. IMPRESSION: No evidence for deep vein thrombosis of the left lower extremity.
--- NOTE | 2022-01-22 16:41 | ED ---
General Adult HPI - General Chief complaint: Neuro Symptoms/Deficit Stated complaint: possible stroke Time Seen by Provider: 01/22/22 13:44 Source: EMS, RN notes reviewed, old records reviewed Mode of arrival: EMS Limitations: no limitations - History of Present Illness Initial comments: Patient is a 61-year-old female with past medical history remarkable for osteoporosis, chronic pain, bilateral knee replacements, presents emergency department over concern for a left knee and leg numbness for the last 4 days. It is intermittent. It comes and goes with no known palliative or provocative factors. Patient's daughter states that she may have had some slurred speech at some point of the last 4 days as well. Otherwise patient is acting normally. She is uncertain what is going on. Recently did have left knee replacement surgery. Since for further evaluation at this time. Currently is asymptomatic. Denies any history of blood clots. Denies chest pain, shortness of breath, abdominal pain, nausea, vomiting. Denies any sensory deficits currently. Denies any weakness. His no other acute complaints at this time. - Related Data Home Medications Medication Instructions Recorded Confirmed Gabapentin [Neurontin] 100 mg PO TID 06/26/20 01/22/22 Glucosam/Jj-Msm1/C/Charan/Bosw 1 tab PO DAILY 06/26/20 01/22/22 [Glucosamine-Chondroitin Tablet] Latanoprost/Pf [Latanoprost 0.005% 1 drop BOTH EYES HS 06/26/20 01/22/22 Eye Drop] Multivitamins, Thera [Multivitamin 1 tab PO DAILY 06/26/20 01/22/22 (formulary)] rOPINIRole HCL [Requip] 1 mg PO HS 06/26/20 01/22/22 Cyclobenzaprine [Flexeril] 10 mg PO BID PRN 01/22/22 01/22/22 Docusate [Colace] 100 mg PO BID 01/22/22 01/22/22 Fluticasone Nasal [place] [Flonase 1 spray EA NOSTRIL DAILY 01/22/22 01/22/22 Nasal [place]] HYDROcodone/APAP 5-325MG [[place] 1 tab PO BID PRN 01/22/22 01/22/22 5-325] Mag Hydrox/Al Hydrox/Simeth 30 ml PO Q4H PRN 01/22/22 01/22/22 [Maalox] Omeprazole 20 mg PO DAILY 01/22/22 01/22/22 Previous Rx's Medication Instructions Recorded Ibuprofen 800 mg PO Q6HR PRN #20 tablet 01/14/21 Ibuprofen [Motrin] 800 mg PO Q8H PRN 7 Days #21 tab 01/22/22 Allergies Allergy/AdvReac Type Severity Reaction Status Date / Time No Known Allergies Allergy Verified 01/22/22 14:41 Review of Systems ROS Statement: Those systems with pertinent positive or pertinent negative responses have been documented in the HPI. Review of Systems: CONST: Denies fever EYES: Denies blurry vision ENT: Denies nasal congestion C/V: Denies Chest pain RESP: Denies shortness of breath GI: Denies abdominal pain : Denies dysuria SKIN: Denies rash. MSK: Denies joint pain. NEURO: Denies headache ROS Other: All systems not noted in ROS Statement are negative. Past Medical History Past Medical History: Osteoarthritis (OA) Additional Past Medical History / Comment(s): fx left clavicle,hx FX RT WRIST- 04/19/16. RLS,lower pelvic pain, nerve pain History of Any Multi-Drug Resistant Organisms: None Reported Past Surgical History: Section, Orthopedic Surgery Additional Past Surgical History / Comment(s): lt shoulder surgery with hardware Past Anesthesia/Blood Transfusion Reactions: No Reported Reaction Additional Past Anesthesia/Blood Transfusion Reaction / Comment(s): no hx blood transfusion Past Psychological History: No Psychological Hx Reported Smoking Status: Never smoker Past Alcohol Use History: None Reported Past Drug Use History: None Reported - Past Family History Mother History Unknown: Yes Family Medical History: Diabetes Mellitus Father Family Medical History: Cancer General Exam - General Exam Comments Initial Comments: General: Appears in no acute distress.. Patient is obese. HEAD: Normal with no signs of head trauma. EYES: PERRLA, EOMI, conjunctiva normal, no discharge. ENT: Hearing grossly intact, normal oropharynx. RESPIRATORY: Clear breath sounds bilaterally. No wheezes, rales, or rhonchi. C/V: Regular rate and rhythm. S1 and S2 auscultated, no edema, peripheral pulses 2+ and intact throughout ABD: Abd is soft, nontender, nondistended EXT: Normal range of motion, no obvious deformity. Patient has large legs. No edema. Chronic findings to the patient. No focal findings. SKIN: No rashes or lesions observed on exposed skin. NEURO: Alert and oriented x 4. Cranial nerves II-XII intact. No focal sensory or strength deficits. GCS of 15. NIH of 0. Patient is able to ambulate. Limitations: no limitations Course Vital Signs 01/22/22 01/22/22 01/22/22 13:27 15:46 16:49 Temperature 98.1 F Pulse Rate 112 H 116 H 113 H Respiratory 18 16 18 Rate Blood Pressure 174/80 134/82 136/77 O2 Sat by Pulse 99 99 97 Oximetry Medical Decision Making - Medical Decision Making Based on the patient's presentation and physical exam, she is having intermittent paresthesias, as well as possible slurred speech for last 4 days. Currently is asymptomatic. Patient's daughter and patient are concerned for possible injury the left leg or possible strokelike symptoms. She has no other acute complaints at this time. I did offer her CT brain in addition to imaging of the left lower extremity to rule out DVT, as well as x-rays. She was in agreement this plan. Basic labs and screening EKG will also be obtained. She was in agreement this plan. EKG showed no signs of acute ischemia. Laboratory studies are all within normal limits. CT brain shows no acute findings. No acute intracranial process. Venous duplex studies are negative for DVT. X-rays of the left lower extremity are negative for acute fracture dislocation. On reevaluation, vital signs remain within normal limits. Patient's exam is unchanged. I discussed with her her findings. I believe it is safer to be discharged home at this time. She was in agreement this plan. We'll follow up with her PCP. She remains asymptomatic. I instructed the patient to follow up with their PCP in the next 1-3 days. She will follow-up with orthopedic surgeon.. I explained that the patient should return to the emergency department if they experience any worsening symptoms. Strict return precautions were discussed with the patient. The patient expressed understanding of these instructions. I answered all questions that the patient had. The patient was discharged home in good condition with their prescriptions and follow up information. - Lab Data Result diagrams: 01/22/22 14:00 01/22/22 14:00 Lab Results 01/22/22 01/22/22 01/22/22 Range/Units 13:36 14:00 14:00 WBC 8.6 (3.8-10.6) k/uL RBC 4.84 (3.80-5.40) m/uL Hgb 13.3 (11.4-16.0) gm/dL Hct 42.5 (34.0-46.0) % MCV 87.8 (80.0-100.0) fL MCH 27.4 (25.0-35.0) pg MCHC 31.2 (31.0-37.0) g/dL RDW 14.2 (11.5-15.5) % Plt Count 201 (150-450) k/uL MPV 9.5 Neutrophils % 58 % Lymphocytes % 28 % Monocytes % 8 % Eosinophils % 3 % Basophils % 1 % Neutrophils # 5.0 (1.3-7.7) k/uL Lymphocytes # 2.4 (1.0-4.8) k/uL Monocytes # 0.7 (0-1.0) k/uL Eosinophils # 0.2 (0-0.7) k/uL Basophils # 0.0 (0-0.2) k/uL Hypochromasia Slight Sodium 138 (137-145) mmol/L Potassium 4.2 (3.5-5.1) mmol/L Chloride 103 (98-107) mmol/L Carbon Dioxide 24 (22-30) mmol/L Anion Gap 11 mmol/L BUN 19 H (7-17) mg/dL Creatinine 0.53 (0.52-1.04) mg/dL Est GFR (CKD-EPI)AfAm >90 (>60 ml/min/1.73 sqM) Est GFR (CKD-EPI)NonAf >90 (>60 ml/min/1.73 sqM) Glucose 86 (74-99) mg/dL POC Glucose (mg/dL) 88 (70-110) mg/dL POC [employer] Lab Technician ID Willem Daley Calcium 9.6 (8.4-10.2) mg/dL Magnesium 1.8 (1.6-2.3) mg/dL Urine Color Urine Appearance (Clear) Urine pH (5.0-8.0) Ur Specific [place] (1.001-1.035) Urine Protein (Negative) Urine Glucose (UA) (Negative) Urine Ketones (Negative) Urine Blood (Negative) Urine Nitrite (Negative) Urine Bilirubin (Negative) Urine Urobilinogen (<2.0) mg/dL Ur Leukocyte Esterase (Negative) 01/22/22 Range/Units 15:18 WBC (3.8-10.6) k/uL RBC (3.80-5.40) m/uL Hgb (11.4-16.0) gm/dL Hct (34.0-46.0) % MCV (80.0-100.0) fL MCH (25.0-35.0) pg MCHC (31.0-37.0) g/dL RDW (11.5-15.5) % Plt Count (150-450) k/uL MPV Neutrophils % % Lymphocytes % % Monocytes % % Eosinophils % % Basophils % % Neutrophils # (1.3-7.7) k/uL Lymphocytes # (1.0-4.8) k/uL Monocytes # (0-1.0) k/uL Eosinophils # (0-0.7) k/uL Basophils # (0-0.2) k/uL Hypochromasia Sodium (137-145) mmol/L Potassium (3.5-5.1) mmol/L Chloride (98-107) mmol/L Carbon Dioxide (22-30) mmol/L Anion Gap mmol/L BUN (7-17) mg/dL Creatinine (0.52-1.04) mg/dL Est GFR (CKD-EPI)AfAm (>60 ml/min/1.73 sqM) Est GFR (CKD-EPI)NonAf (>60 ml/min/1.73 sqM) Glucose (74-99) mg/dL POC Glucose (mg/dL) (70-110) mg/dL POC [employer] Lab Technician ID Calcium (8.4-10.2) mg/dL Magnesium (1.6-2.3) mg/dL Urine Color Light Yellow Urine Appearance Clear (Clear) Urine pH 5.5 (5.0-8.0) Ur Specific [place] 1.011 (1.001-1.035) Urine Protein Negative (Negative) Urine Glucose (UA) Negative (Negative) Urine Ketones Negative (Negative) Urine Blood Negative (Negative) Urine Nitrite Negative (Negative) Urine Bilirubin Negative (Negative) Urine Urobilinogen <2.0 (<2.0) mg/dL Ur Leukocyte Esterase Negative (Negative) - EKG Data -: EKG Interpreted by Me EKG Comments: 12-lead Electrocardiogram Interpretation Note EKG was reviewed and interpreted by myself. 12-lead ECG performed at 1402 to is interpreted by me as revealing sinus tachycardia at a rate of 107 beats per minute. [place] is normal. DC interval is 120 ms, QRS durations 105 ms, QTc is 395 ms.. There were no ST or T wave abnormalities to suggest myocardial ischemia or injury. R wave progression across the precordium was satisfactory. By my interpretation this EKG is non-diagnostic for acute ischemia. Disposition Clinical Impression: Knee pain, left, Left leg paresthesias Disposition: HOME SELF-CARE Condition: Good Instructions (If sedation given, give patient instructions): Knee Pain (ED) Additional Instructions: follow up with your orthopedic surgeon. Prescriptions: Ibuprofen [Motrin] 800 mg PO Q8H PRN 7 Days #21 tab PRN Reason: Pain Is patient prescribed a controlled substance at d/c from ED?: No Referrals: Vicente Guan MD [Primary Care Provider] - 1-2 days Time of Disposition: 16:20
[2022-01-22 16:51] VITALS: BP 136/77; PULSE 113; RESP 18
== END 2022-01-22 16:50 | disposition home or self-care (01) ==
LOC: EC 13:25
DX: R20.2 Paresthesia of skin (principal); M25.562 Pain in left knee; M19.90 Unspecified osteoarthritis, unspecified site; Z79.899 Other long term (current) drug therapy
CPT/HCPCS: 36415; 93005; 80048; 83735; 85025; 81003; 73562; 73590; 93971; 70450; 99285; 96374; J2270

== ENCOUNTER → 2022-02-04 | Outpatient (CLI) | payer BC ==
--- NOTE | 2022-02-04 11:53 | MM ---
Reason for Exam: Screening (asymptomatic). Last mammogram was performed 1 year(s) and 2 month(s) ago. Patient History: Menarche at age 13. First Full-Term at age 23. Postmenopausal. Risk Values: Carolyn 5 year model risk: 1.3%. NCI Lifetime model risk: 6.4%. Prior Study Comparison: 10/08/2004 Bilateral Screening Mammogram, [facility]. 03/18/2006 Bilateral Screening Mammogram, [facility]. 04/15/2007 Bilateral Screening Mammogram, [facility]. 12/05/2020 Bilateral Diagnostic Mammogram, [facility]. Tissue Density: There are scattered fibroglandular densities. Findings: Analyzed By CAD. There is no suspicious group of microcalcifications or new suspicious mass in either breast. Overall Assessment: Negative, BI-RAD 1 Management: Screening Mammogram of both breasts in 1 year. A clinical breast exam by your physician is recommended on an annual basis and results should be correlated with mammographic findings. Electronically signed and approved by: King Rodgers DO
== END | disposition home or self-care (01) ==
LOC: RADMAMWWP 11:06
PROVIDERS: ATTEND Obstetrics & Gynecology
DX: Z12.31 Encounter for screening mammogram for malignant neoplasm of breast (principal)
CPT/HCPCS: 77067

== ENCOUNTER → 2023-02-05 | Outpatient (CLI) | payer BC ==
--- NOTE | 2023-02-06 08:56 | MM ---
Reason for Exam: Screening (asymptomatic). Last screening mammogram was performed 12 month(s) ago. Patient History: Menarche at age 13. First Full-Term at age 23. Postmenopausal. Risk Values: Carolyn 5 year model risk: 1.4%. NCI Lifetime model risk: 6.2%. Prior Study Comparison: 04/15/2007 Bilateral Screening Mammogram, [facility]. 12/05/2020 Bilateral Diagnostic Mammogram, [facility]. 02/04/2022 Bilateral MG screening mammo w CAD, [facility]. Tissue Density: There are scattered fibroglandular densities. Findings: Analyzed By CAD. There is no suspicious group of microcalcifications or new suspicious mass in either breast. Overall Assessment: Negative, BI-RAD 1 Management: Screening Mammogram of both breasts in [address] [facility] will attempt to contact patient to return for supplemental views and ultrasound if indicated. Patient should continue monthly self-breast exams. A clinical breast exam by your physician is recommended on an annual basis. This exam should not preclude additional follow-up of suspicious palpable abnormalities. Note on Carolyn scores and lifetime risk: 1. A Carolyn score greater than 3% is considered moderate risk. If this is the case, consider specialist referral to assess eligibility for a risk reducing agent. 2. If overall lifetime risk for the development of breast cancer is 20% or higher, the patient may qualify for future screening with alternating mammogram and breast MRI. Electronically signed and approved by: King Rodgers DO
== END | disposition home or self-care (01) ==
LOC: RADMAMWWP 10:14
PROVIDERS: ATTEND Family Medicine
DX: Z12.31 Encounter for screening mammogram for malignant neoplasm of breast (principal); Z78.0 Asymptomatic menopausal state
CPT/HCPCS: 77067

== ENCOUNTER → 2023-04-17 | Outpatient (CLI) | payer BC ==
[2023-04-17 13:48] LABS: Basophils % (A) 0 %; Eosinophils # (A) 0.4 k/uL (0-0.7); Eosinophils % (A) 5 %; HCT 43.2 % (34.0-46.0); Hypochromasia Moderate; Lymphocytes # (A) 2.1 k/uL (1.0-4.8); Lymphocytes % (A) 29 %; MCH 27.9 pg (25.0-35.0); MCHC 30.1 g/dL (31.0-37.0); MCV 92.8 fL (80.0-100.0); Mean Platelet Volume 9.8; Monocytes # (A) 0.6 k/uL (0-1.0); Monocytes % (A) 8 %; Neutrophils # (A) 3.9 k/uL (1.3-7.7); Neutrophils % (A) 55 %; Platelet Count 163 k/uL (150-450); RBC 4.66 m/uL (3.80-5.40); RDW 13.8 % (11.5-15.5); WBC 7.1 k/uL (3.8-10.6)
[2023-04-17 14:00] LABS: African American GFR (CKD) >90 (>60 ml/min/1.73 sqM); Anion Gap 10 mmol/L; Blood Urea Nitrogen 14 mg/dL (7-17); Calcium 9.3 mg/dL (8.4-10.2); Carbon Dioxide 25 mmol/L (22-30); Chloride 107 mmol/L (98-107); Glucose 95 mg/dL (74-99); Non-African American GFR(CKD) >90 (>60 ml/min/1.73 sqM); Potassium 4.2 mmol/L (3.5-5.1); Sodium 142 mmol/L (137-145)
== END | disposition home or self-care (01) ==
LOC: LABWHC1 10:41
PROVIDERS: ATTEND Internal Medicine
DX: R06.09 Other forms of dyspnea (principal)
CPT/HCPCS: 36415; 80048; 85025; 85379

== ENCOUNTER → 2023-04-18 | Outpatient (CLI) | payer BC ==
[2023-04-18 16:09] LABS: ALT 36 U/L (8-44); AST 24 U/L (13-35); Chol/HDL Ratio 2.62 Ratio; LDL Cholesterol,Calculated 83.2 mg/dL (0.0-131.0)
== END | disposition home or self-care (01) ==
LOC: LABWHC1 09:59
PROVIDERS: ATTEND Student in an Organized Health Care Education/Training Program
DX: E78.2 Mixed hyperlipidemia (principal)
CPT/HCPCS: 36415; 80061; 83036; 84450; 84460

== ENCOUNTER → 2023-06-19 | Outpatient (CLI) | payer BC ==
--- NOTE | 2023-06-19 11:35 | CT ---
EXAMINATION TYPE: CT angio chest CT DLP: 550 mGycm, Automated exposure control for dose reduction was used. DATE OF EXAM: 06/19/2023 11:09 AM COMPARISON: Chest x-ray 04/18/2023 CLINICAL INDICATION:Female, 62 years old with history of R06.09 OTHER FORMS OF DYSPNEA; PE TECHNIQUE/CONTRAST: CTA scan of the thorax is performed with IV Contrast, patient injected with 100 mL of Isovue 370, MIP images are created and reviewed these are created on a separate workstation.. FINDINGS: There is adequate contrast bolus and timing. PULMONARY ARTERIES: There is no evidence for a filling defect within the pulmonary vasculature to sug gest acute pulmonary embolism. Pulmonary trunk is upper normal in size. Trunk measures 2.9 CM. HEART: Heart size upper normal. No significant coronary arterial calcification seen. No appreciable pericardial effusion. AORTA: Mild atherosclerotic calcifications of the aorta and branches. Ascending aorta is 3.4 CM, stacey cending is 2.4 CM. Aorta is considered mildly ectatic in the descending portion. Small ductus diver ticulum is suggested. No evidence of dissection. LOWER NECK: No significant findings. MEDIASTINUM: No gross evidence of adenopathy. SOFT TISSUES/LYMPH NODES: Unremarkable soft tissues. No axillary adenopathy. LUNGS/ PLEURA: Mild biapical scarring. Mild scarring and/or subsegmental atelectasis in the lung base s. No evidence of mass, consolidation, pleural effusion, pneumothorax. AIRWAY: Central airways are patent. MUSCULOSKELETAL: No acute osseous abnormality. Moderate disc degeneration changes are present through out the included thoracolumbar spine. Deformity of the left chest wall appears related to remote heal ed rib fractures. Partially seen hardware fixation of the left clavicle. UPPER ABDOMEN: No significant findings. Mild eventration noted along the bilateral hemidiaphragms. IMPRESSION: 1. No evidence of pulmonary embolism. 2. No other acute chest process demonstrated.
== END | disposition home or self-care (01) ==
LOC: RADCTMAIN 10:35
PROVIDERS: ATTEND Internal Medicine
DX: R06.09 Other forms of dyspnea (principal)
CPT/HCPCS: 71275; Q9967

== ENCOUNTER → 2023-07-18 | Outpatient (CLI) | payer BC ==
--- NOTE | 2023-07-18 14:02 | BD ---
EXAMINATION TYPE: Axial Bone Density DATE OF EXAM: 07/18/2023 CLINICAL HISTORY: 62 years old Female. ICD-10 CODE: M81.0 AGE-RELATED OSTEOPOROSIS W/O CURRENT PATHO LO Height: 60.2 Weight: 226 FRAX RISK QUESTIONS: History of Fracture in Adulthood: yes 3. Menopause before 45: no RISK FACTORS HISTORY OF: lt shoulder fracture, as an adult, MEDICATIONS: vitamins, calcium and vit d EXAM MEASUREMENTS: Bone mineral densitometry was performed using the [employer] System. Bone mineral density as measured about the Lumbar spine is: ----- L1-L4(G/cm2): 1.076 T Score Values are as follows: ----- L1: -2.1 ----- L2: 0.3 ----- L3: -0.6 ----- L4: -0.6 ----- L1-L4: -0.9 Z Score Values are as follows: ----- L1: -1.8 ----- L2: -0.1 ----- L3: -0.3 ----- L4: -0.4 ----- L1-L4: -0.6 Bone mineral density has: Decreased -1.6% since study of: 06.06.2021 Bone mineral density about the R hip (g/cm2): 0.715 Bone mineral density about the L hip (g/cm2): 0.693 T Score values are as follows: -----R Neck: -2.1 -----L Neck: -2.2 -----R Total: -2.3 -----L Total: -2.5 Z Score values are as follows: -----R Neck: -1.5 -----L Neck: -1.6 -----R Total: -2.1 -----L Total: -2.3 Bone mineral density has: Increased 4.6% since study of: 06.06.2021 FRAX%s: The graph provided illustrates a 15.9% chance for a major osteoporotic fx and a 2.4% chance f or the hips probability for fx in 10 years time. IMPRESSION: Osteoporosis (T Score less than -2.5). There is increased fracture risk and therapy is usually indicated based on age. Re-Screen 1-2 years. NOTE: T-SCORE=SD OF THE YOUNG ADULT MEAN.
== END | disposition home or self-care (01) ==
LOC: RADBDWWP 10:22
PROVIDERS: ATTEND Obstetrics & Gynecology
DX: M81.0 Age-related osteoporosis without current pathological fracture (principal); M85.89 Other specified disorders of bone density and structure, multiple sites
CPT/HCPCS: 77080

== ENCOUNTER → 2024-02-10 | Outpatient (CLI) | payer BC ==
--- NOTE | 2024-02-11 10:35 | MM ---
Reason for Exam: Screening (asymptomatic). Last mammogram was performed 1 year(s) and 1 month(s) ago. Patient History: Menarche at age 13. First Full-Term at age 23. Postmenopausal. Risk Values: Carolyn 5 year model risk: 1.4%. NCI Lifetime model risk: 6.0%. Prior Study Comparison: 12/05/2020 Bilateral Diagnostic Mammogram, [facility]. 02/04/2022 Bilateral MG screening mammo w CAD, [facility]. 02/05/2023 Bilateral MG screening mammo w CAD, [facility]. Tissue Density: The breasts are heterogeneously dense, which may obscure small masses. Findings: Analyzed By CAD. There is no suspicious group of microcalcifications or new suspicious mass in either breast. Stable chronic nodularity left breast. Overall Assessment: Benign, BI-RAD 2 Management: Screening Mammogram of both breasts in 1 year. . Patient should continue monthly self-breast exams. A clinical breast exam by your physician is recommended on an annual basis. This exam should not preclude additional follow-up of suspicious palpable abnormalities. Note on Carolyn scores and lifetime risk: 1. A Carolyn score greater than 3% is considered moderate risk. If this is the case, consider specialist referral to assess eligibility for a risk reducing agent. 2. If overall lifetime risk for the development of breast cancer is 20% or higher, the patient may qualify for future screening with alternating mammogram and breast MRI. Electronically signed and approved by: Vicente Mandujano M.D. Radiologis
== END | disposition home or self-care (01) ==
LOC: RADMAMWWP 12:14
PROVIDERS: ATTEND Obstetrics & Gynecology
DX: Z12.31 Encounter for screening mammogram for malignant neoplasm of breast
CPT/HCPCS: 77067